=== PATIENT | female | born 1945 | race Caucasian/White ===

== ENCOUNTER 2017-09-19 16:34 | Emergency (ER) | payer MEDICARE, OTHER, SELFPAY | END 2017-09-19 18:57 | disposition home or self-care (01) | PROVIDERS: Emergency Provider Emergency Medicine; Visit Provider Emergency Medicine | DX: J05.0 Acute obstructive laryngitis [croup] (principal); B34.9 Viral infection, unspecified; I10 Essential (primary) hypertension; E78.5 Hyperlipidemia, unspecified; E11.9 Type 2 diabetes mellitus without complications | CPT/HCPCS: 71020; 94640 ==

== ENCOUNTER → 2021-08-22 16:22 | Outpatient (REF) | payer MEDICARE, OTHER, SELFPAY ==
[2021-08-22 17:02] LABS: Basophils % 0.4 % (0.1-2.0); Eosinophils # 0.3 K/mm3 (0.0-0.4); Eosinophils % 3.9 % (0.1-12.0); Hemoglobin 10.7 g/dL (12.2-16.2); Lymphocytes # 1.1 K/mm3 (0.7-4.5); Lymphocytes % 13.2 % (10-50); Mean Corpuscular HGB Conc 30.6 g/dL (31.8-35.4); Mean Corpuscular Hemoglobin 32.3 pg (27.0-31.2); Mean Corpuscular Volume 105.6 fl (81-99); Mean Platelet Volume 9.8 fl (7.4-10.4); Monocytes # 0.3 K/mm3 (0.1-1.0); Monocytes % 3.9 % (1.7-9.3); Neutrophils # 6.8 K/mm3 (1.8-7.8); Neutrophils % 78.6 % (37.0-80.0); Platelet Count 313 K/mm3 (142-424); Red Blood Count 3.32 M/mm3 (4.20-5.40); Red Cell Distribution Width 14.6 % (11.5-17.5); White Blood Count 8.6 K/mm3 (4.8-10.8)
[2021-08-22 17:26] LABS: Anion Gap 9.4 mEq/L (5-15); Blood Urea Nitrogen 25 mg/dl (7-17); Calcium 9.3 mg/dl (8.4-10.2); Carbon Dioxide 30 mmol/L (22.0-30.0); Chloride 104 mmol/L (98-107); Estimated Glomerular Filt Rate 36 ml/min (>60); GFR (African American) 44 ML/MIN (>60); Glucose 130 mg/dl (74-100); Potassium 4.4 mmoL/L (3.5-5.1); Sodium 139 mmol/L (136-145)
== END ==
LOC: LAB.DROPOF 16:22
PROVIDERS: Visit Provider Family Medicine
DX: I10 Essential (primary) hypertension (principal)
CPT/HCPCS: 80048; 85025

== ENCOUNTER 2021-08-22 20:46 | Inpatient (IN) | payer MEDICARE, OTHER, SELFPAY ==
[2021-08-22 20:38] VITALS: BP 168/73; PULSE 71; RESP 18; TEMP 36.6; O2SAT 96; BMI 44.6
--- NOTE | 2021-08-22 21:03 | CT_ITS ---
PROCEDURE INFORMATION: Exam: CT Head Without Contrast Exam date and time: 08/22/2021 9:03 PM Age: 75 years old Clinical indication: Altered mental status/memory loss; Confusion or disorientation; Additional info: AMS TECHNIQUE: Imaging protocol: Computed tomography of the head without contrast. Radiation optimization: All CT scans at this facility use at least one of these dose optimization techniques: automated exposure control; mA and/or kV adjustment per patient size (includes targeted exams where dose is matched to clinical indication); or iterative reconstruction. COMPARISON: No relevant prior studies available. FINDINGS: Brain: Mild age related central and peripheral cerebral atrophy noted. No hemorrhage. There is mild decreased attenuation within lateral periventricular white matter, compatible with chronic deep white matter ischemic change. No mass effect. Cerebral ventricles: Mild atrophy related global ventriculomegaly. No evidence of midline shift. Paranasal sinuses: Visualized sinuses are unremarkable. No fluid levels. Nasal septal deviation to the right is noted. Mastoid air cells: Visualized mastoid air cells are well aerated. Vasculature: Intraranial artery density is normal. Bones/joints: Unremarkable. No acute fracture. Soft tissues: Bilateral cataract surgery has been performed. Auricular cartilage calcification noted along the external canals. IMPRESSION: 1. No evidence of acute intracranial bleed or focal cerebral edema. 2. Mild age-related central and peripheral cerebral atrophy with chronic deep white matter ischemic changes noted.
--- NOTE | 2021-08-22 21:21 | CT_ITS ---
PROCEDURE INFORMATION: Exam: CT Abdomen And Pelvis With Contrast Exam date and time: 08/22/2021 9:21 PM Age: 75 years old Clinical indication: Abdominal pain; Generalized; Prior surgery; Surgery date: 1-6 months; Surgery type: Bowel perforation surgery; Additional info: Recent perforation TECHNIQUE: Imaging protocol: Computed tomography of the abdomen and pelvis with contrast. Radiation optimization: All CT scans at this facility use at least one of these dose optimization techniques: automated exposure control; mA and/or kV adjustment per patient size (includes targeted exams where dose is matched to clinical indication); or iterative reconstruction. Contrast material: ISOVUE; Contrast volume: 75 ml; Contrast route: IV; COMPARISON: No relevant prior studies available. FINDINGS: Lungs: No mass/infiltrate at either lung base. No pleural effusion. Transvenous pacing leads are identified within the right heart. There is a small hiatal hernia above the gastroesophageal junction. Surgical clips surround the distal esophagus and the small hiatal hernia. Liver: The liver is normal in size and attenuation. No intrahepatic biliary dilitation. Gallbladder and bile ducts: There is a 1.4 cm densely calcified gallstone present within the neck of the gallbladder. The gallbladder does not appear enlarged. There is no evidence of gallbladder wall thickening or pericholecystic effusion. No evidence of extrahepatic biliary dilatation. Pancreas: Normal. No ductal dilation. Spleen: Normal. No splenomegaly. Adrenal glands: Normal. No mass. Kidneys and ureters: Normal. No hydronephrosis. Stomach and bowel: Diverticulosis of portions of the colon identified. In the region of the proximal sigmoid colon there is thickening of the bowel wall. Infiltration of fat of the mesosigmoid is identified. No extraluminal collection of fluid or gas. Findings are compatible with focal diverticulitis in this location. No obstruction. No mucosal thickening. Small bowel mesentery is normal. Appendix: Unremarkable. Intraperitoneal space: Unremarkable. No free air. No significant fluid collection. Vasculature: Arterial atheromatous calcifications are noted. No abdominal aortic aneurysm. Lymph nodes: Unremarkable. No enlarged lymph nodes. Urinary bladder: There is a Robertson catheter identified within the bladder. Limited distention of the bladder. Reproductive: Unremarkable as visualized. Bones/joints: There are degenerative changes within the thoracic and lumbar spine. No acute fracture. Soft tissues: Unremarkable. IMPRESSION: 1. There is a focal area of inflammatory change noted within the proximal sigmoid colon. This is seen in conjunction with prominent diverticulosis within the descending colon and sigmoid colon. It is felt to represent a focus of diverticulitis. No evidence of extraluminal collection of fluid or gas to suggest an abscess. 2. Small hiatal hernia. There are surgical clips surrounding the distal esophagus and the small hiatal hernia. 3. Cholelithiasis. 4. A Robertson catheter is in place.
[2021-08-22 21:28] LABS: Microscopic, Urine URINE MICROSCOPIC (MICROSCOPIC)
--- NOTE | 2021-08-22 21:31 | HMH.EDAMS ---
ED Disposition Clinical Impression: SIRS (systemic inflammatory response syndrome), Renal insufficiency Altered mental status Qualifiers: Altered mental status type: delirium Qualified Code(s): R41.0 - Disorientation, unspecified Diverticulitis large intestine Qualifiers: Diverticulitis bleeding: without bleeding Diverticulitis complication: without perforation or abscess Qualified Code(s): K57.32 - Diverticulitis of large intestine without perforation or abscess without bleeding Cholelithiasis Qualifiers: Cholelithiasis location: gallbladder Cholecystitis presence: without cholecystitis Biliary obstruction: without biliary obstruction Qualified Code(s): K80.20 - Calculus of gallbladder without cholecystitis without obstruction Disposition: Admitted as Observation Condition on Discharge: Good - Critical Care Critical Care Time: No Attestation: On 08/22/21, the high probability of a clinically significant, sudden or life threatening deterioration of the following system(s) required my full and direct attention, intervention and personal management. The time I documented below is in addition to time spent performing reported procedures but includes the following listed in this critical care notation. Medical Decision Making - Medical Records Medical records reviewed: Yes: I reviewed the patient's medical records. - Segundo Inquiry Pt receiving controlled substance: No Vital Signs: 08/22/21 20:38 08/22/21 21:32 08/22/21 21:35 Temperature 97.8 F 98.8 F Temperature Source Oral Rectal Pulse Rate 94 H Pulse Rate [Right] 71 Respiratory Rate 18 Blood Pressure 175/92 H Blood Pressure [Right Arm] 168/73 H Blood Pressure Mean [Right Arm] 104 02 Sat by Pulse Oximetry 96 95 Oxygen Delivery Method 08/22/21 22:13 08/22/21 22:38 08/22/21 23:01 Temperature Temperature Source Pulse Rate 105 H 81 104 H Pulse Rate [Right] Respiratory Rate Blood Pressure 184/94 H 168/75 H 183/103 H Blood Pressure [Right Arm] Blood Pressure Mean [Right Arm] 02 Sat by Pulse Oximetry 95 96 94 L Oxygen Delivery Method 08/23/21 01:29 08/23/21 01:41 08/23/21 02:27 Temperature 98.8 F 97.7 F Temperature Source Rectal Oral Pulse Rate 111 H 118 H Pulse Rate [Right] 115 H Respiratory Rate 18 20 Blood Pressure 168/91 H 168/91 H Blood Pressure [Right Arm] 134/72 Blood Pressure Mean [Right Arm] 92 02 Sat by Pulse Oximetry 95 94 L Oxygen Delivery Method Room Air 08/23/21 02:43 Temperature Temperature Source Pulse Rate Pulse Rate [Right] Respiratory Rate Blood Pressure Blood Pressure [Right Arm] Blood Pressure Mean [Right Arm] 02 Sat by Pulse Oximetry Oxygen Delivery Method Room Air - Lab Data Lab results reviewed: Yes: I reviewed the patient's lab results. Lab Results 08/22/21 21:18: WBC 8.7, RBC 3.37 L, Hgb 10.9 L, Hct 35.5 L, MCV 105.3 H, MCH 32.4 H, MCHC 30.8 L, RDW 14.6, Plt Count 337, MPV 9.2, Neut % (Auto) 72.5, Lymph % (Auto) 16.1, [place] % (Auto) 6.0, Eos % (Auto) 4.5, Baso % (Auto) 0.9, Neut # (Auto) 6.3, Lymph # (Auto) 1.4, [place] # (Auto) 0.5, Eos # (Auto) 0.4, Baso # (Auto) 0.1, ESR 90 H 08/22/21 21:18: Sodium 139, Potassium 4.3, Chloride 105, Carbon Dioxide 31 H, Anion Gap 7.3, BUN 24 H, Creatinine 1.40 H, Estimated Creat Clear 29, Estimated GFR 36 L, Est GFR ( Amer) 44 L, Glucose 97 D, Calcium 9.6, Total Bilirubin 0.1 L, AST 57 H, ALT 48, Alkaline Phosphatase 137 H, C-Reactive Protein 20.8 H, Total Protein 6.7, Albumin 3.5, Globulin 3.2, Albumin/Globulin Ratio 1.1, Procalcitonin 0.110 08/22/21 21:18: Urine Color Yellow, Urine Appearance Clear, Urine pH 5.5, Ur Specific [place] 1.025, Urine Protein Negative, Urine Glucose (UA) Negative, Urine Ketones Negative, Urine Blood Negative, Urine Nitrate Negative, Urine Bilirubin Negative, Urine Urobilinogen 0.2, Ur Leukocyte Esterase Negative, Urine RBC None, Urine WBC Occasional, Ur Squamous Epith Cells None, Urine
[2021-08-22 21:32] VITALS: BP 175/92; PULSE 94; O2SAT 95
[2021-08-22 21:32] LABS: Basophils # 0.1 K/mm3 (0-0.2); Basophils % 0.9 % (0.1-2.0); Eosinophils # 0.4 K/mm3 (0.0-0.4); Eosinophils % 4.5 % (0.1-12.0); Hematocrit 35.5 % (37.0-47.0); Hemoglobin 10.9 g/dL (12.2-16.2); Lymphocytes # 1.4 K/mm3 (0.7-4.5); Lymphocytes % 16.1 % (10-50); Mean Corpuscular HGB Conc 30.8 g/dL (31.8-35.4); Mean Corpuscular Hemoglobin 32.4 pg (27.0-31.2); Mean Corpuscular Volume 105.3 fl (81-99); Mean Platelet Volume 9.2 fl (7.4-10.4); Monocytes # 0.5 K/mm3 (0.1-1.0); Neutrophils # 6.3 K/mm3 (1.8-7.8); Neutrophils % 72.5 % (37.0-80.0); Platelet Count 337 K/mm3 (142-424); Red Blood Count 3.37 M/mm3 (4.20-5.40); Red Cell Distribution Width 14.6 % (11.5-17.5); White Blood Count 8.7 K/mm3 (4.8-10.8)
[2021-08-22 21:34] LABS: Coronavirus 19, PCR Not Detected (NotDetected); Influenza A, PCR Not Detected (NotDetected); Influenza B, PCR Not Detected (NotDetected)
[2021-08-22 21:35] VITALS: TEMP 37.1
[2021-08-22 21:35] LABS: Appearance,Urine CLEAR (Clear); Bilirubin,Urine Negative (Negative); Blood, Urine Negative (Negative); Color,Urine YELLOW (Yellow); Glucose,Urine (UA) Negative (Negative); Ketones,Urine Negative (Negative); Leukocyte Esterase,Urine Negative (Negative); Nitrate,Urine Negative (Negative); PH,Urine 5.5 (5.0-8.5); Protein,Urine Negative (Negative); Specific Gravity, Urine 1.025 (1.005-1.030); Urobilinogen,Urine 0.2 EU/dl (0.2)
[2021-08-22 21:44] LABS: Alanine Aminotransferase 48 U/L (12-78); Albumin Level 3.5 g/dl (3.5-5.0); Albumin/Globulin Ratio 1.1 (1.1-1.8); Alkaline Phosphatase 137 U/L (38-126); Anion Gap 7.3 mEq/L (5-15); Aspartate Amino Transferase 57 U/L (14-36); Blood Urea Nitrogen 24 mg/dl (7-17); Calcium 9.6 mg/dl (8.4-10.2); Carbon Dioxide 31 mmol/L (22.0-30.0); Chloride 105 mmol/L (98-107); Creatinine Clearance Estimated 29 mL/min (50-200); Estimated Glomerular Filt Rate 36 ml/min (>60); GFR (African American) 44 ML/MIN (>60); Globulin 3.2 g/dL (1.3-3.2); Glucose 97 mg/dl (74-100); Lactic Acid 1.2 mmol/L (0.7-2.1); Potassium 4.3 mmoL/L (3.5-5.1); Sodium 139 mmol/L (136-145); Total Protein,Serum 6.7 g/dl (6.3-8.2)
[2021-08-22 21:47] LABS: Bilirubin,Total 0.1 mg/dl (0.2-1.3)
[2021-08-22 21:49] LABS: C-Reactive Protein 20.8 mg/L (0-4); WBC,Urine Occasional #/hpf (0-3)
[2021-08-22 22:07] LABS: Amylase 75 U/L (30-110); Lipase 135 U/L (23-300)
[2021-08-22 22:12] LABS: Erythrocyte Sedimentation Rate 90 mm/hr (0-30)
[2021-08-22 22:13] VITALS: BP 184/94; PULSE 105; O2SAT 95
[2021-08-22 22:25] LABS: Troponin I < 0.01 ng/ml (0.00-0.034)
[2021-08-22 22:38] VITALS: BP 168/75; PULSE 81; O2SAT 96
--- NOTE | 2021-08-22 22:55 | XR_ITS ---
PROCEDURE INFORMATION: Exam: XR Chest Exam date and time: 08/22/2021 10:55 PM Age: 75 years old Clinical indication: Sternal or substernal pain; Additional info: AMS TECHNIQUE: Imaging protocol: XR of the chest. Views: 1 view. COMPARISON: CR CXR CHEST(2 VIEWS-NOT PORTABLE) 09/19/2017 5:01 PM FINDINGS: Tubes, catheters and devices: There is a left dual lead transvenous pacer with distal leads in the right atrium and right ventricle. There is a right internal jugular catheter with its tip in the superior vena cava. Lungs: Unremarkable. No consolidation. Pleural spaces: Unremarkable. No pleural effusion. No pneumothorax. Heart/Mediastinum: Unremarkable. No cardiomegaly. Bones/joints: There is levoconvex lower thoracic scoliosis. IMPRESSION: 1. Right internal jugular catheter with its tip in the superior vena cava. No evidence of pneumothorax. 2. No evidence of acute process within the chest.
[2021-08-22 23:01] VITALS: BP 183/103; PULSE 104; O2SAT 94
[2021-08-23] VITALS (16 sets, daily range): BP systolic 134–168; BP diastolic 72–100; PULSE 76–123; RESP 16–23; TEMP 36.5–37.1; O2SAT 91–96; BMI 47.0
--- NOTE | 2021-08-23 00:44 | PC.NURSE ---
Pt requesting to leave and come back in AM. She is adamant to no stay through the night. Dr. Smith s/w pt & her . chimney supervisor brick called Dr. Hensley (on-call Gen Surgeron). He requests pt be kept NPO and arrive to [facility] @ 1228 08/23/21. OK to leave peripheral IV in place, this was dressed and wrapped. Pt educated.
--- NOTE | 2021-08-23 01:15 | PC.NURSE ---
DR. JONES ON PHONE WITH
--- NOTE | 2021-08-23 01:33 | PC.NURSE ---
PATIENT TO BE ADMITTED TO 205.
--- NOTE | 2021-08-23 01:40 | PC.NURSE ---
REPORT CALLED TO MIHIR
--- NOTE | 2021-08-23 02:03 | PC.NURSE ---
MARK signed DNR and set up password of Shayy Oquendo @ this time
--- NOTE | 2021-08-23 02:12 | PC.NURSE ---
PT ARRIVED TO FLOOR VIA STRETCHER FROM ED W/STAFF @ [id number]
--- NOTE | 2021-08-23 02:51 | PC.NURSE ---
notified MD Fiore that pt's head and neck are hurting, but pt has no pain medication ordered, instructed to order tylenol for pt, sent night watch the order
--- NOTE | 2021-08-23 03:30 | PC.NURSE ---
notified MD Fiore of pt's extreme agitation, combativeness toward staff, that pt uncooperative and attempting to get out of bed; instructed to give 1mg lorazepam IV
[2021-08-23 03:35] LABS: Troponin I 0.47 ng/ml (0.00-0.034)
--- NOTE | 2021-08-23 03:45 | PC.NURSE ---
notified MD Fiore of pt's critical troponin level of .47, stated protocols have changed in last week and to draw another troponin at 0600
[2021-08-23 06:58] LABS: Troponin I 0.96 ng/ml (0.00-0.034)
--- NOTE | 2021-08-23 07:04 | PC.NURSE ---
notified MD Fiore oncbharathi of pt's critical elevated troponin, MD Fiore stated MD Rodríguez would be rounding shortly and will assess pt when he arrives
--- NOTE | 2021-08-23 07:27 | ECG_ITS ---
APPROVED REPORT Exam: Resting ECG HR:107 bpm ECG Measurements Heart Rate 107 AXES QRSd 86 QRS -66 QT 350 T 32 QTc 467 Conclusion Atrial fibrillation with rapid ventricular response Left axis deviation LBBB Abnormal ECG Electronically signed by : Shady Palacios MD 08/23/2021 09:04:01
--- NOTE | 2021-08-23 08:45 | HMH.HP ---
*Admission Date: 08/22/21 *Chief complaint: Altered mental status *History of present illness: Ms. Jarrett is a 75-year-old white female with a history of chronic atrial fibrillation, hypertension, sleep apnea, seizure disorder, and chronic kidney disease. She was recently admitted to [place] for IV antibiotics following an acute admission at [facility] for ruptured diverticulum which was treated conservatively. She did not require surgery. Last evening, she had a change in her mental status at [facility] and was transferred to the emergency room for further evaluation. In the ER, she was confused and agitated however her work-up was fairly nonrevealing (please refer to ER record for details). She required 1 dose of Ativan overnight. At the time of my exam this morning, she is alert and calm. She was able to call me by name. She does not recall the events of last evening. She is able to give me a a general history but has difficulty recalling specific details. She has no complaints of chest pain, shortness of breath, nausea, or abdominal pain. Her troponins have elevated overnight. She remains in atrial fib with a rapid response but has not had her morning medication. According to her daughter, she has had 2 previous cardioversions which were successful but each time she has gone back into atrial fibrillation. She is scheduled to have another cardioversion on 09/16/[address] Mann[address] [facility] History Medical History: Reports:: Atrial Fibrillation (chronic; s/p 2 previous cardioversions), Hypertension, Internal Pacemaker, Renal Insufficiency, Seizures Denies:: Diabetes Mellitus Type 1, Diabetes Mellitus Type 2 *Have you ever received a pneumonia vaccine?: No *Have you received a flu vaccine this season?: No Other Medical History: Reports: Other (RIAZ, Diverticulosis with hx of ruptured diverticulum) Laterality Cases: Bilateral: Carpal Tunnel Release, Cataract, Tonsillectomy Other Surgeries: Yes: Colonoscopy, Pacemaker, Tubal Ligation, Other (Cardioversion x 2) - *Social History Smoking Status: Never smoker Alcohol Intake: never *Occupational Status:: retired Housing: halfway *Travel in the last 8 weeks: None Family Hx:: Coronary Artery Disease, Diabetes Review of Systems - Constitutional Denies chills, Denies fever(s) - Eyes Denies blurry vision, Denies double vision - ENT Reports hoarseness, Denies abnormal hearing, Denies dizziness, Denies nasal congestion - *Cardiovascular Reports irregular heart rhythm, Reports leg swelling, Denies chest pain, Denies shortness of breath - *Respiratory Reports shortness of breath, Denies chest congestion, Denies cough - *Gastrointestinal Denies abdominal pain, Denies change in stools, Denies bright, red blood in stools, Denies black, tarry stools - *Genitourinary Denies difficulty urinating, Denies hot flashes - *Musculoskeletal Denies joint pain, Denies muscle weakness - Integumentary/Breasts Denies hair loss, Denies change in skin color - *Neurologic Reports confusion, Reports weakness, Denies dizziness, Denies localized weakness, Denies headache(s), Denies seizure-like activity - Psychiatric Denies anxiety - Endocrine Denies excessive sweating - Hematologic/Lymphatic Denies easy bleeding - Allergic/Immunologic Denies itchy eyes Meds Home Medications Medication Instructions Recorded Confirmed Type Apixaban [Eliquis] 5 mg PO BID 08/22/21 08/23/21 History Chlorthalidone [Chlorthalidone 12.5 mg PO DAILY 08/22/21 08/23/21 History 25mg tablet] Flecainide Acetate [Tambocor 50mg 50 mg PO Q12 08/22/21 08/23/21 History tablet] Metoprolol Succinate [Toprol XL 25 mg PO DAILY 08/22/21 08/23/21 History 25mg tablet] Piperacillin Sodium/Tazobactam 3.375 gm IV Q8 08/22/21 08/23/21 History [Piperacil-Tazo 3.375 gm Add Vl] Rosuvastatin Calcium 5 mg PO DAILY 08/22/21 08/23/21 History allopurinoL [Allopurinol 100mg 200 mg PO DAILY 08/22/21
--- NOTE | 2021-08-23 08:59 | PC.NURSE ---
Dr. Amos notified about consult.
--- NOTE | 2021-08-23 09:29 | PC.NURSE ---
per family: Pt has R IJ TLDL as she is receiving IV abx at [place]. Inserted at [place] 1 wk ago.
--- NOTE | 2021-08-23 09:39 | PC.NURSE ---
Pt transferred to room 216 step down. This RN not assuming care of pt.
--- NOTE | 2021-08-23 09:44 | HMH.PHAINT ---
Confirmed home medications with [facility] and [facility] [place]
--- NOTE | 2021-08-23 09:54 | PC.NURSE ---
Pt has R SC double lumen deep line as she is receiving IV abx at [place]. Inserted at [place] 1 wk ago.
--- NOTE | 2021-08-23 10:29 | PC.NURSE ---
pt refused the hospital gown. She is also saying that staff is not taking her to the restroom when we are.
[2021-08-23 11:33] LABS: POC Glucose,Bedside 107 (70-110)
--- NOTE | 2021-08-23 12:57 | HMH.PHAVTE ---
[facility] Pharmacy VTE Monitoring - Patient Demographics Allergies/Adverse Reactions: Patient Allergies adhesive Allergy (Verified 08/22/21 21:02) adhesive tape Allergy (Verified 08/22/21 21:02) Height: 1.65 m Weight: 128 kg Patient Problems: Current Active Problems Altered mental status (Acute) Diverticulitis large intestine (Acute) Cholelithiasis (Acute) SIRS (systemic inflammatory response syndrome) (Acute) Renal insufficiency (Acute) Chronic atrial fibrillation (Acute) HBP (high blood pressure) (Acute) Hx of seizure disorder (Acute) RIAZ (obstructive sleep apnea) (Acute) Elevated troponin (Acute) - VTE Risk Labs: VTE Related Lab Results Hgb 10.9 g/dL (12.2-16.2) L 08/22/21 21:18 Hct 35.5 % (37.0-47.0) L 08/22/21 21:18 Plt Count 337 K/mm3 (142-424) 08/22/21 21:18 BUN 24 mg/dl (7-17) H 08/22/21 21:18 Creatinine 1.40 mg/dl (0.52-1.04) H 08/22/21 21:18 Estimated Creat Clear 29 mL/min (50-200) 08/22/21 21:18 Was VTE Risk Assessment Performed: No Clinical Trial Participant: No - Prophylaxis VTE Prophylaxis Ordered?: Yes Types of VTE Prophylaxis: TEDS Knee High Location of Applied Device: Bilateral Lower Extremeties
--- NOTE | 2021-08-23 13:15 | PC.NURSE ---
Diltiazem gtt increased to 15mg/hr as Afib uncontrolled continues with rate 115-125.
[2021-08-23 16:43] LABS: POC Glucose,Bedside 107 (70-110)
[2021-08-24] VITALS (15 sets, daily range): BP systolic 88–134; BP diastolic 44–74; PULSE 60–101; RESP 16–26; TEMP 36.8–37.1; O2SAT 90–96; BMI 47.0
--- NOTE | 2021-08-24 07:27 | PC.NURSE ---
EKG reveals sinus tach with rate 144. Pt also having multiple PVCs. Dr. Amos to round this morning.
--- NOTE | 2021-08-24 08:48 | HMH.ACPN2 ---
Internal Medicine - PN: Subj *Date: 08/24/21 *Time: 08:55 Interval history: She was started on a Cardizem drip yesterday per Dr. Amos to control her rate. She remains in A. fib with controlled rate this morning. Otherwise no new complaints. She rested better last night. Did not require Ativan. This morning her mental status is more clear. She is able to relate her medical history more clearly today. Exam Vital signs and Labs for Last 24 Hours: Temp Pulse Resp BP Pulse Ox 98.7 F 77 18 114/65 90 L 08/24/21 08:00 08/24/21 08:00 08/24/21 08:00 08/24/21 08:00 08/24/21 08:00 Laboratory Results - last 24 hr 08/23/21 11:15: POC Glucose 107 08/23/21 16:36: POC Glucose 107 I & O for Last 24 hours: Intake & Output 08/21/21 08/22/21 08/23/21 08/24/21 11:59 11:59 11:59 11:59 Intake Total 380 / 380 Output Total 1350 / 1350 Balance -970 / -970 Weight 282 lb 3.067 oz 282 lb 3.067 oz Narrative: She is awakened from sleep and arouses easily. She appears in no distress. Lungs are clear anteriorly. Heart is irregularly irregular. Abdomen is obese, soft, nondistended and nontender. Extremities no edema. Assessment and Plan (1) Altered mental status Status: Acute Qualifiers: Altered mental status type: delirium Qualified Code(s): R41.0 - Disorientation, unspecified Category: Medical Code(s): R41.82 - Altered mental status, unspecified (2) Diverticulitis large intestine Status: Acute Qualifiers: Diverticulitis bleeding: without bleeding Diverticulitis complication: without perforation or abscess Qualified Code(s): K57.32 - Diverticulitis of large intestine without perforation or abscess without bleeding Category: Medical Code(s): K57.32 - Diverticulitis of large intestine without perforation or abscess without bleeding (3) Chronic atrial fibrillation Status: Acute Category: Medical Code(s): I48.20 - Chronic atrial fibrillation, unspecified (4) HBP (high blood pressure) Status: Acute Category: Medical Code(s): I10 - Essential (primary) hypertension (5) Hx of seizure disorder Status: Acute Category: Medical Code(s): Z86.69 - Personal history of other diseases of the nervous system and sense organs (6) RIAZ (obstructive sleep apnea) Status: Acute Category: Medical Code(s): G47.33 - Obstructive sleep apnea (adult) (pediatric) (7) Elevated troponin Status: Acute Category: Medical Code(s): R77.8 - Other specified abnormalities of plasma proteins - Assessment and plan all Dx Assessment and Plan for all problems:: Continue Cardizem drip pending further recommendations per cardiology. Up in chair as tolerated. Mental status seems to be improving. Consider MRI brain if mental status does not return to baseline.
--- NOTE | 2021-08-24 08:57 | PC.NURSE ---
O2 sat hovering 85-88% for last 1hr. Pulse ox sticker changed and good pleth noted on tele monitor. Applied 2L NC and O2 sat now 93%.
--- NOTE | 2021-08-24 14:02 | ECG_ITS ---
APPROVED REPORT Exam: Resting ECG HR:70 bpm ECG Measurements Heart Rate 70 AXES QRSd 76 QRS -59 QT 502 T 154 QTc 542 Conclusion Atrial fibrillation Left axis deviation Low voltage QRS Prolonged QT Abnormal ECG Electronically signed by : Shady Palacios MD 08/25/2021 21:07:23
--- NOTE | 2021-08-24 19:00 | PC.NURSE ---
pt's HR 95, went to 12mg/hr on dilt drip
--- NOTE | 2021-08-24 20:00 | PC.NURSE ---
pt's HR 85, went to 10mg/hr on dilt drip
--- NOTE | 2021-08-24 21:00 | PC.NURSE ---
pt's HR 73, went to 8mg/hr on dilt drip
--- NOTE | 2021-08-24 22:02 | PC.NURSE ---
pt's HR 72, went to 6mg/hr on dilt drip
--- NOTE | 2021-08-24 22:49 | PC.NURSE ---
pt's HR 74, decreased dilt drip to 4mg/hr
[2021-08-25] VITALS (25 sets, daily range): BP systolic 97–125; BP diastolic 48–67; PULSE 66–89; RESP 16–24; TEMP 36.6–36.8; O2SAT 91–98; BMI 48.1
--- NOTE | 2021-08-25 | IR_ITS ---
APPROVED REPORT Patient Location: Inpatient [facility] Apprentice: DEVAN Pisano RT (R) PROCEDURES Left heart catheterization Left ventriculogram Selective coronary angiogram INDICATION Acute non-ST elevation myocardial infarction Informed consent was obtained prior to the procedure. COMPLICATIONS NONE Estimated Blood Loss: LESS THAN 10 ML TECHNIQUE One percent lidocaine used to anesthetize the right anterior aspect of the wrist. The right radial artery was accessed via the Seldinger technique. A 6 [place] sheath was placed in the right radial artery. 2.5 mg of verapamil, 800 mcg of nitroglycerin, 1mg Lidocaine and 5000 U Heparin were given through the arterial sheath. The [place] 1 catheter was also used to perform left heart catheterization, left ventriculogram and selective coronary angiogram. At the end of the procedure the sheath was removed good hemostasis was achieved using Traclet band, patient was transferred to the postop holding area in stable condition. ANGIOGRAPHIC RESULTS The left main artery Normal The left anterior descending artery Normal The circumflex artery Codominant normal The right coronary artery Codominant normal The CADENA ventriculogram reveals Dilated ventricle with apical ballooning with reduced ejection fraction at 25% The left ventricular end-diastolic pressure Severely elevated at 30 mmHg IMPRESSION Normal coronary arteries Apical ballooning consistent with Takotsubo cardiomyopathy Elevated LVEDP PLAN 1. Standard therapy for systolic heart failure 2. Discontinuation of flecainide. Patient has a history of chronic atrial fibrillation therefore makes no sense to continue flecainide. 3. Additional research is required. Apparently patient had her pacemaker placed just 2 months ago for bradycardia and it would be nice to get a copy of the echo report or possibly even the echo images to verify the ejection fraction was considerably better than what we are seeing. It appears as though patient has apical ballooning and possible Takotsubo cardiomyopathy although this may be a chronic finding. If this were chronic finding, I would recommend cardiac resynchronization therapy given she is RV pacing 40% of the time and would also consider TRANSLATOR AND INTERPRETER-D in order to reduce the likelihood of dying from sudden cardiac from ventricular arrhythmia 4. Continue anticoagulation Electronically signed by : Rafa Amos MD 08/25/2021 15:52:18
--- NOTE | 2021-08-25 | PC.NURSE ---
pt's HR still 60-70's however was NSR and regular, but now pt having frequent irregular beats, increased dilt drip to 5mg/hr
[2021-08-25 05:48] LABS: Basophils % 0.2 % (0.1-2.0); Eosinophils # 0.3 K/mm3 (0.0-0.4); Eosinophils % 2.6 % (0.1-12.0); Hemoglobin 9.6 g/dL (12.2-16.2); Lymphocytes # 1.3 K/mm3 (0.7-4.5); Lymphocytes % 10.7 % (10-50); Mean Corpuscular HGB Conc 32.8 g/dL (31.8-35.4); Mean Corpuscular Hemoglobin 33.2 pg (27.0-31.2); Mean Corpuscular Volume 101.2 fl (81-99); Mean Platelet Volume 9.5 fl (7.4-10.4); Monocytes # 0.5 K/mm3 (0.1-1.0); Monocytes % 4.4 % (1.7-9.3); Neutrophils # 10.1 K/mm3 (1.8-7.8); Neutrophils % 82.1 % (37.0-80.0); Platelet Count 286 K/mm3 (142-424); White Blood Count 12.3 K/mm3 (4.8-10.8)
[2021-08-25 05:49] LABS: Hematocrit 29.4 % (37.0-47.0)
[2021-08-25 05:57] LABS: Anion Gap 7.8 mEq/L (5-15); Blood Urea Nitrogen 32 mg/dl (7-17); Calcium 8.8 mg/dl (8.4-10.2); Carbon Dioxide 29 mmol/L (22.0-30.0); Chloride 104 mmol/L (98-107); Creatinine Clearance Estimated 18 mL/min (50-200); Estimated Glomerular Filt Rate 22 ml/min (>60); GFR (African American) 26 ML/MIN (>60); Glucose 108 mg/dl (74-100); Potassium 3.8 mmoL/L (3.5-5.1); Sodium 137 mmol/L (136-145)
--- NOTE | 2021-08-25 08:46 | HMH.ACPN2 ---
<Carol Moreira - Last Filed: 08/25/21 08:46> Internal Medicine - PN: Subj *Date: 08/25/21 *Time: 08:46 Interval history: Patient was able to sleep last night. She denies chest pain and shortness of breath. She states she eats without problems. She has not been out of bed. She remains on a Cardizem drip. Cardiology to see her this morning. She does describe some nasal stuffiness with a slight cough which started this morning upon awakening Exam Vital signs and Labs for Last 24 Hours: Temp Pulse Resp BP Pulse Ox 97.8 F 73 19 107/53 L 95 08/25/21 07:50 08/25/21 06:00 08/25/21 06:00 08/25/21 04:05 08/25/21 08:00 Laboratory Results - last 24 hr 08/25/21 05:40: WBC 12.3 H D, RBC 2.90 L, Hgb 9.6 L, Hct 29.4 L, MCV 101.2 H, MCH 33.2 H, MCHC 32.8, RDW 15.0, Plt Count 286, MPV 9.5, Neut % (Auto) 82.1 H, Lymph % (Auto) 10.7, [place] % (Auto) 4.4, Eos % (Auto) 2.6, Baso % (Auto) 0.2, Neut # (Auto) 10.1 H, Lymph # (Auto) 1.3, [place] # (Auto) 0.5, Eos # (Auto) 0.3, Baso # (Auto) 0.0 08/25/21 05:40: Sodium 137, Potassium 3.8, Chloride 104, Carbon Dioxide 29, Anion Gap 7.8, BUN 32 H D, Creatinine 2.20 H D, Estimated Creat Clear 18, Estimated GFR 22 L, Est GFR ( Amer) 26 L D, Glucose 108 H, Calcium 8.8 I & O for Last 24 hours: Intake & Output 08/22/21 08/23/21 08/24/21 08/25/21 11:59 11:59 11:59 11:59 Intake Total 1400 / 1400 1160 / 1160 Output Total 1350 / 1350 550 / 550 Balance 50 / 50 610 / 610 Weight 282 lb 3.067 oz 282 lb 3.067 oz 289 lb Microbiology Reports for the Last 24 Hours: Microbiology 08/22/21 21:18 Blood Blood Culture - Preliminary NO GROWTH AFTER 48 HOURS 08/22/21 21:18 Blood Blood Culture - Preliminary NO GROWTH AFTER 48 HOURS - Constitutional no acute distress Comments: Starting to eat breakfast - *Routine Respiratory Exam Present: crackles (Bilateral basilar) - *Routine Cardiovascular Exam Present: irregularly irregular Comments: Monitor showing a garden variety of rhythms to include paced, sinus rhythm with frequent PACs, and possibly some atrial fibrillation. - *Routine Abdominal Exam Present: soft, normoactive bowel sounds. Absent: tenderness, distended - *Routine Extremities Exam Absent: edema, calf tenderness - *Routine Neurological Exam Present: alert, oriented X3 Assessment and Plan (1) Altered mental status Status: Acute Qualifiers: Altered mental status type: delirium Qualified Code(s): R41.0 - Disorientation, unspecified Category: Medical Code(s): R41.82 - Altered mental status, unspecified (2) Diverticulitis large intestine Status: Acute Qualifiers: Diverticulitis bleeding: without bleeding Diverticulitis complication: without perforation or abscess Qualified Code(s): K57.32 - Diverticulitis of large intestine without perforation or abscess without bleeding Category: Medical Code(s): K57.32 - Diverticulitis of large intestine without perforation or abscess without bleeding (3) Chronic atrial fibrillation Status: Acute Category: Medical Code(s): I48.20 - Chronic atrial fibrillation, unspecified (4) HBP (high blood pressure) Status: Acute Category: Medical Code(s): I10 - Essential (primary) hypertension (5) Hx of seizure disorder Status: Acute Category: Medical Code(s): Z86.69 - Personal history of other diseases of the nervous system and sense organs (6) RIAZ (obstructive sleep apnea) Status: Acute Category: Medical Code(s): G47.33 - Obstructive sleep apnea (adult) (pediatric) (7) Elevated troponin Status: Acute Category: Medical Code(s): R77.8 - Other specified abnormalities of plasma proteins - Assessment and plan all Dx Assessment and Plan for all problems:: Cardiology to see patient today and will follow their recommendations. <Tanner Rodríguez - Last Filed: 08/25/21 14:03> Internal Med
--- NOTE | 2021-08-25 08:55 | HMH.CNCARD ---
History of Present Illness Consult date: 08/25/21 Requesting physician: Tanner Rodríguez Chief complaint: Confusion, elevated troponins Additional Medical History:: 1. Diabetes mellitus, diagnosed 2004, currently not on medical therapy 2. History of seizure disorder, August/2004, no recurrent seizures since then 3. Atrial fibrillation A. History of successful cardioversion x 2 ([place] and [place]). B. [employer] pacemaker inserted for bradycardia, June 2021, Dr. Mann in [place], [place] C. Patient is on flecainide therapy as well as Eliquis with CHADS-VASC score of 5 (age, female, HTN, DM) with annual thrombosis risk of 7.2%. 4. Chronic white matter disease of the brain by CT scan of the head, 08/2021 A. Altered mental status, 08/2021 5. Chronic kidney disease, patient has been seeing a hearing aid consultant for many years 6. Sleep apnea 7. Resident of [place] 8. Colonic diverticulum perforation, treated conservatively, [facility], latter half of 2020 9. Meralgia paresthesia (Ella-Andrews Syndrome). History of present illness: Ms. Jarrett is a 75-year-old white female with a history of chronic atrial fibrillation, hypertension, sleep apnea, seizure disorder, and chronic kidney disease. She was recently admitted to [place] for IV antibiotics following an acute admission at [facility] for ruptured diverticulum which was treated conservatively. She did not require surgery. Last evening, she had a change in her mental status at [place] and was transferred to the emergency room for further evaluation. In the ER, she was confused and agitated however her work-up was fairly nonrevealing (please refer to ER record for details). She required 1 dose of Ativan overnight. At the time of my exam this morning, she is alert and calm. She was able to call me by name. She does not recall the events of last evening. She is able to give me a a general history but has difficulty recalling specific details. She has no complaints of chest pain, shortness of breath, nausea, or abdominal pain. Her troponins have elevated overnight. She remains in atrial fib with a rapid response but has not had her morning medication. According to her daughter, she has had 2 previous cardioversions which were successful but each time she has gone back into atrial fibrillation. She is scheduled to have another cardioversion on 09/16/[address] Mann. The above per Dr. Rodríguez Admission details as noted above Cardiology consulted for elevated troponin and history of atrial fibrillation prior. Patient relates a stress test many years ago by Dr. Huitron but with no need for subsequent evaluation or testing. She was referred to Dr. Mann for management of her atrial fibrillation. She recently had a pacemaker placed in June of this year for bradycardia. [facility] History Medical History: Reports:: Atrial Fibrillation (chronic; s/p 2 previous cardioversions), Hypertension, Internal Pacemaker, Renal Insufficiency, Seizures Denies:: Diabetes Mellitus Type 1, Diabetes Mellitus Type 2 *Have you ever received a pneumonia vaccine?: No *Have you received a flu vaccine this season?: No Other Medical History: Reports: Other (RIAZ, Diverticulosis with hx of ruptured diverticulum) Laterality Cases: Bilateral: Carpal Tunnel Release, Cataract, Tonsillectomy Other Surgeries: Yes: Colonoscopy, Pacemaker, Tubal Ligation, Other (Cardioversion x 2) - *Social History Smoking Status: Never smoker Alcohol Intake: never *Occupational Status:: retired Housing: long term *Travel in the last 8 weeks: None Family Hx:: Coronary Artery Disease, Diabetes Meds Home Medications Medication Instructions Recorded Confirmed Type Apixaban [Eliquis] 5 mg PO BID 08/22/21 08/23/21 History Chlorthalidone [Chlorthalidone 12.5 mg PO DAILY 08/22/21 08/23/21 History 25mg tablet] Flecainide Acetate [Tambocor 50mg 50 mg PO Q12 08/22/21 08/23/21 History
--- NOTE | 2021-08-25 09:10 | CA_ITS ---
APPROVED REPORT EXAM: Comprehensive 2D, Doppler, and color-flow Echocardiogram Train Operations Manager: Zahraa Dyson CRT Ht: 5 ft 4 in Wt: 282lbs BSA: 2.26 BP: 134/72 mmHg Indications: Atrial Fibrillation, Hypertension/HDD, DNR, PACER, CARDIOVERSION X2. INCREASED OF TROP 2D Dimensions LVOT 1.98 cm (M/F) 1.5-2.5 LA Volume 57.50 mL LA Volume Index 25.40 mL/m2 (M/F) 16-34 M-Mode Dimensions RVDd 2.81 cm (0.9-2.6) LA Diam 4.25 cm (1.9-4.0) LVDd 5.69 cm (3.5-5.7) Ao Diam 3.95 cm (2.0-3.7) LVDs 3.72 cm (3.5-5.7) IVSd 1.22 cm (0.6-1.1) PWd 0.89 cm (0.6-1.1) EF (Teich) 63.00% FS 34.60% EDV (Teich) 159.40 mL TAPSE 2.47 (<1.7) ESV (Teich) 58.90 mL LV Diastology E Decel Time 203.00 (160-240 msec) E/A Ratio 2.84 MED E' 11.00 (< 7 cm/sec) MED A' 6.20 cm/s E'/MED E' Ratio 9.93 (>14) LAT E' 9.00 (<10 cm/sec) LAT A' 3.30 cm/s E/LAT E' Ratio 12.13 (>14) Aortic Valve AO Peak GR. 7.70 mmHg Mitral Valve MV E Max Enrrique. 109.00 (40-130 cm/s) MV A Velocity 38.00 (40-130 cm/s) E/A Ratio 2.84 MV Decel. Time 203.00 (160-240 ms) MV PHT 60.00 ms Tricuspid Valve TR P. Velocity 254.00 cm/s RAP Estimate 10.00 mmHg RVSP 35.70 mmHg Left Ventricle Technically very difficult study because of the patient factors and poor acoustic windows, endocardial surfaces are very poorly visualized. Left atrium is mildly enlarged, left ventricle is normal size, mild concentric left ventricular hypertrophy, there is abnormal septal motion, estimation of the ejection fraction from this study is very difficult, with slightly reduced and in the range of approximately 30%, there is abnormal septal motion, repeat study with Definity contrast is recommended for accurate assessment of wall motion and ejection fraction. Diastolic parameters are inconclusive. Right Ventricle Right atrium and right ventricle mildly enlarged with normal contractility, pacemaker lead seen in right atrium and right ventricle. Aortic Valve Aortic valve is minimally thickened and calcified without aortic stenosis or aortic insufficiency. Mitral Valve Mitral valve leaflets are minimally thickened, there is no mitral stenosis, there is mild mitral regurgitation. Tricuspid Valve Tricuspid valve grossly normal, there is mild tricuspid regurgitation, tricuspid regurgitation jet velocity is inadequate for calculation of the right ventricular systolic pressure. Pulmonic Valve Pulmonic valve is poorly visualized. Great Vessels Aortic root is normal size. Inferior vena cava normal size with normal inspiratory collapse. Pericardium No significant pericardial effusion noted. Conclusion 1. Technically difficult study because of the patient factors and poor acoustic windows, endocardial surfaces are very poorly visualized for accurate assessment of the ejection fraction, repeat study with Definity contrast is recommended. Likely reduced left ventricular systolic function, estimated ejection fraction is approximately 30%, there appears to be abnormal septal motion. Diastolic parameters are inconclusive. 2. Mildly enlarged right ventricle with normal contractility. 3. Mild mitral and tricuspid regurgitation. 4. No significant pericardial effusion noted. 5. Inferior vena cava is normal size with normal inspiratory collapse. Electronically signed by : Guanakito Schwartz MD 08/25/2021 21:21:21
--- NOTE | 2021-08-25 09:14 | SW/DCPLANNER ---
Addendum entered by [facility] 09/01/21 15:21: This patient will transfer back via [facility] bus per Franchesca. Addendum entered by [facility] 09/01/21 11:50: This patient is medically stable for discharge today: I have informed Franchesca [place]/ [facility]. Addendum entered by [facility] 09/01/21 10:13: COVID is negative and has been faxed to [facility] [place]/ Karthik Lal. Addendum entered by [facility] 09/01/21 09:44: Updated patient information has been faxed to [facility] [place]/ Karthik Lal. Patient could potentially discharge later today. COVID swab has been ordered. Addendum entered by [facility] 08/28/21 09:20: Updated patient information has been faxed to Franchesca with [facility]. Original Note: This patient currently resides at [facility]. I spoke with Franchesca from [facility] to confirm that patient is SNF level of care. Franchesca has stated that patient is currently paying bedhold. Patient information has been faxed. Discharge date is unknown at this time.
--- NOTE | 2021-08-25 18:25 | PC.NURSE ---
Patient is s/p cardiac cath this shift with radial band in place no bleeding or hematoma noted, resting comfortably in bed at this time, weaned to RA this shift and tolerating well, wishes for ramey catheter to be removed, states we can remove ramey when she can get out of bed this evening, pt has been pleasant and cooperative with care this shift, vss, will continue to monitor
[2021-08-26] VITALS (12 sets, daily range): BP systolic 98–131; BP diastolic 49–66; PULSE 60–117; RESP 16–23; TEMP 36.4–36.8; O2SAT 91–99
--- NOTE | 2021-08-26 04:29 | PC.NURSE ---
F/C DC'd overnight. Pt has been up to BSC with stand by assist. Tolerated well. VSS at this time. Pt is currently on 2L O2 NC while sleeping due to desat during sleep. Pt states she uses Cpap at home. Pt noted to have nonproductive cough. Incentive spirometry given. Pt educated. Pt is afib on telemetry with pacer spikes noted at times. DSG to (R) radial cath site is C/D/I. No drainage noted. Pt has scattered bruising to BUE. Erythema noted to (R) chest around DSG to central line.
[2021-08-26 06:42] LABS: Basophils % 0.2 % (0.1-2.0); Eosinophils # 0.3 K/mm3 (0.0-0.4); Eosinophils % 3.6 % (0.1-12.0); Hematocrit 30.5 % (37.0-47.0); Hemoglobin 9.6 g/dL (12.2-16.2); Lymphocytes # 1.3 K/mm3 (0.7-4.5); Lymphocytes % 14.1 % (10-50); Mean Corpuscular HGB Conc 31.5 g/dL (31.8-35.4); Mean Corpuscular Hemoglobin 32.8 pg (27.0-31.2); Mean Corpuscular Volume 104.2 fl (81-99); Mean Platelet Volume 9.7 fl (7.4-10.4); Monocytes # 0.4 K/mm3 (0.1-1.0); Monocytes % 4.2 % (1.7-9.3); Neutrophils # 7.3 K/mm3 (1.8-7.8); Neutrophils % 77.9 % (37.0-80.0); Platelet Count 310 K/mm3 (142-424); Red Blood Count 2.93 M/mm3 (4.20-5.40); Red Cell Distribution Width 14.7 % (11.5-17.5); White Blood Count 9.4 K/mm3 (4.8-10.8)
[2021-08-26 07:07] LABS: Blood Urea Nitrogen 39 mg/dl (7-17); Calcium 8.3 mg/dl (8.4-10.2); Carbon Dioxide 30 mmol/L (22.0-30.0); Chloride 104 mmol/L (98-107); Creatinine Clearance Estimated 18 mL/min (50-200); Estimated Glomerular Filt Rate 21 ml/min (>60); GFR (African American) 25 ML/MIN (>60); Glucose 99 mg/dl (74-100); Sodium 135 mmol/L (136-145)
--- NOTE | 2021-08-26 08:56 | HMH.ACPN2 ---
<Carol Moreira - Last Filed: 08/26/21 08:56> Internal Medicine - PN: Subj *Date: 08/26/21 *Time: 08:56 Interval history: Patient had a busy day yesterday with procedure and physician visits. He states she did sleep several hours during the night. She denies chest pain. She describes herself as being cold. She is short of breath with any exertion. She has developed a cough which is sometimes productive. She i describes chest congestion as well as head congestion. She is eating without difficulty. Bowels have moved. CBC this morning shows a white blood cell count of 9400 with a hemoglobin of 9.6 hematocrit of 30.5. Blood chemistries show sodium 135 potassium 4 BUN is 39 and creatinine is 2.3. Cardiac cath with the following documentation: IMPRESSION Normal coronary arteries Apical ballooning consistent with Takotsubo cardiomyopathy Elevated LVEDP PLAN 1. Standard therapy for systolic heart failure 2. Discontinuation of flecainide. Patient has a history of chronic atrial fibrillation therefore makes no sense to continue flecainide. 3. Additional research is required. Apparently patient had her pacemaker placed just 2 months ago for bradycardia and it would be nice to get a copy of the echo report or possibly even the echo images to verify the ejection fraction was considerably better than what we are seeing. It appears as though patient has apical ballooning and possible Takotsubo cardiomyopathy although this may be a chronic finding. If this were chronic finding, I would recommend cardiac resynchronization therapy given she is RV pacing 40% of the time and would also consider METAL MOVER-D in order to reduce the likelihood of dying from sudden cardiac from ventricular arrhythmia 4. Continue anticoagulation Cardiology documentation as followsADDENDUM LHC revealed normal coronaries. Apical ballooning noted on cath with official echo results pending, but concerned for Takotsubo Cardiomyopathy. Will try to obtain most recent echo near time of pacer implant to compare. Maximize medical therapy. Consider upgrading device to Bi-V AICD if this cardiomyopathy is pacer induced. Will stop flecainide and diltiazem due to near 100% A. fib over the last week on pacer download in setting of cardiomyopathy. Will increase metoprolol. Exam Vital signs and Labs for Last 24 Hours: Temp Pulse Resp BP Pulse Ox 97.7 F 97 H 20 113/55 L 98 08/26/21 08:00 08/26/21 06:00 08/26/21 06:00 08/26/21 06:00 08/26/21 06:00 Laboratory Results - last 24 hr 08/26/21 05:37: WBC 9.4, RBC 2.93 L, Hgb 9.6 L, Hct 30.5 L, MCV 104.2 H, MCH 32.8 H, MCHC 31.5 L, RDW 14.7, Plt Count 310, MPV 9.7, Neut % (Auto) 77.9, Lymph % (Auto) 14.1, [place] % (Auto) 4.2, Eos % (Auto) 3.6, Baso % (Auto) 0.2, Neut # (Auto) 7.3, Lymph # (Auto) 1.3, [place] # (Auto) 0.4, Eos # (Auto) 0.3, Baso # (Auto) 0.0 08/26/21 05:37: Sodium 135 L, Potassium 4.0, Chloride 104, Carbon Dioxide 30, Anion Gap 5.0, BUN 39 H, Creatinine 2.30 H, Estimated Creat Clear 18, Estimated GFR 21 L, Est GFR ( Amer) 25 L, Glucose 99, Calcium 8.3 L I & O for Last 24 hours: Intake & Output 08/23/21 08/24/21 08/25/21 08/26/21 11:59 11:59 11:59 11:59 Intake Total 1400 / 1400 1160 / 1160 360 / 360 Output Total 1350 / 1350 550 / 550 800 / 800 Balance 50 / 50 610 / 610 -440 / -440 Weight 282 lb 3.067 oz 282 lb 3.067 oz 289 lb 288 lb 12.889 oz - Constitutional no acute distress Comments: Sitting up in bed eating her breakfast. She appears comfortable. - *Routine Respiratory Exam Present: crackles (Bilateral greater on the left posteriorly) - *Routine Cardiovascular Exam Present: irregular rhythm (Mostly paced rhythm today.) - *Routine Abdominal Exam Present: soft, normoactive bowel sounds. Absent: tenderness - *Routine Extremities Exam Present: pulses intact. Absent: edema, calf tenderness - *Routine Neurological Exam Present: alert, oriented X3 Assessme
--- NOTE | 2021-08-26 09:00 | XR_ITS ---
PROCEDURE: XR CHEST PORTABLE CLINICAL HISTORY: New cough and chest congestion COMPARISON: CR CXR CHEST(2 VIEWS-NOT PORTABLE) from 09/19/2017 CR XR CHEST PORTABLE from 08/22/2021 FINDINGS: Mild cardiomegaly without failure. Bipolar pacemaker is present from left subclavian approach. Right IJ dual lumen catheter present with the tip in the region the SVC. There is elevated right hemidiaphragm with trace right effusion. Multiple small linear opacities noted projecting over the right lower lung zone and may be related overlying artifact. No acute bony abnormalities. IMPRESSION: Suspect trace right effusion otherwise no change. Dictated by: Janak Carrington MD 08/26/2021 09:59 Janak Carrington MD in [place] 08/26/2021 09:59
--- NOTE | 2021-08-26 12:01 | HMH.PNCARD ---
Subjective Date: 08/26/21 Time: 12:01 Principal diagnosis: AMS, Cardiomyopathy Interval history: 75-year-old white female in bed in no acute distress. No shortness of breath noted. Mild congestion noted in the nasal area being addressed by PCP. Telemetry shows what appears to be continued atrial fibrillation with intermittent paced beats. Rate is improved control on increased metoprolol dosing. Cardiac cath report: ANGIOGRAPHIC RESULTS The left main artery Normal The left anterior descending artery Normal The circumflex artery Codominant normal The right coronary artery Codominant normal The CADENA ventriculogram reveals Dilated ventricle with apical ballooning with reduced ejection fraction at 25% The left ventricular end-diastolic pressure Severely elevated at 30 mmHg IMPRESSION Normal coronary arteries Apical ballooning consistent with Takotsubo cardiomyopathy Elevated LVEDP PLAN 1. Standard therapy for systolic heart failure 2. Discontinuation of flecainide. Patient has a history of chronic atrial fibrillation therefore makes no sense to continue flecainide. 3. Additional research is required. Apparently patient had her pacemaker placed just 2 months ago for bradycardia and it would be nice to get a copy of the echo report or possibly even the echo images to verify the ejection fraction was considerably better than what we are seeing. It appears as though patient has apical ballooning and possible Takotsubo cardiomyopathy although this may be a chronic finding. If this were chronic finding, I would recommend cardiac resynchronization therapy given she is RV pacing 40% of the time and would also consider FAMILY PRACTICE MD-D in order to reduce the likelihood of dying from sudden cardiac from ventricular arrhythmia 4. Continue anticoagulation Electronically signed by : Rafa Amos MD 08/25/2021 15:52:18 Exam Vital signs and Labs for Last 24 Hours: Temp Pulse Resp BP Pulse Ox 97.7 F 64 18 120/64 96 08/26/21 08:00 08/26/21 08:00 08/26/21 08:00 08/26/21 08:00 08/26/21 08:00 Laboratory Results - last 24 hr 08/26/21 05:37: WBC 9.4, RBC 2.93 L, Hgb 9.6 L, Hct 30.5 L, MCV 104.2 H, MCH 32.8 H, MCHC 31.5 L, RDW 14.7, Plt Count 310, MPV 9.7, Neut % (Auto) 77.9, Lymph % (Auto) 14.1, [place] % (Auto) 4.2, Eos % (Auto) 3.6, Baso % (Auto) 0.2, Neut # (Auto) 7.3, Lymph # (Auto) 1.3, [place] # (Auto) 0.4, Eos # (Auto) 0.3, Baso # (Auto) 0.0 08/26/21 05:37: Sodium 135 L, Potassium 4.0, Chloride 104, Carbon Dioxide 30, Anion Gap 5.0, BUN 39 H, Creatinine 2.30 H, Estimated Creat Clear 18, Estimated GFR 21 L, Est GFR ( Amer) 25 L, Glucose 99, Calcium 8.3 L I & O for Last 24 hours: Intake & Output 08/24/21 08/25/21 08/26/21 08/27/21 11:59 11:59 11:59 11:59 Intake Total 1400 / 1400 1160 / 1160 360 / 360 Output Total 1350 / 1350 550 / 550 800 / 800 Balance 50 / 50 610 / 610 -440 / -440 Weight 282 lb 3.067 oz 289 lb 288 lb 12.889 oz - Constitutional no acute distress - *Routine HEENT Exam Head: Present: normocephalic Eye: Present: EOMI, PERRL ENT: Present: mucous membranes moist - *Routine Neck Exam Present: supple. Absent: lymphadenopathy - *Routine Respiratory Exam Present: CTA bilaterally - *Routine Cardiovascular Exam Present: RRR - *Routine Abdominal Exam Present: soft, normoactive bowel sounds. Absent: tenderness - *Routine Extremities Exam Absent: cyanosis, clubbing, edema - *Routine Skin Exam Present: warm. Absent: rash - *Routine Neurological Exam Present: alert, oriented X3 Progress Note: A&P (1) Altered mental status Status: Acute (2) Diverticulitis large intestine Status: Acute (3) Chronic atrial fibrillation Status: Acute (4) HBP (high blood pressure) Status: Acute (5) Hx of seizure disorder Status: Acute (6) RIAZ (obstructive sleep apnea) Status: Acute (7) Elevated troponin Status: Acute (8) URI (upper respiratory in
[2021-08-27] VITALS (26 sets, daily range): BP systolic 89–148; BP diastolic 45–80; PULSE 61–90; RESP 15–23; TEMP 36.5–37.1; O2SAT 89–100; BMI 48.1
--- NOTE | 2021-08-27 | IR_ITS ---
APPROVED REPORT Patient Location: [facility] Dispatcher: DEVAN Pisano RT (R) PROCEDURES 1. Pocket Revision 2. Extraction of existing right ventricular sensing lead. 3. Placement of right ventricular sensing pacing and shocking lead in the right ventricular apex. 4. Placement of left ventricular sensing pacing lead via the coronary sinus. 5. Permanent cardiac resynchronization therapy with ICD implantation/biventricular pacemaker. INDICATION Systolic Congestive Heart Failure, ejection <35%, Wide QRS >120ms, Harvey Heart Assoication Class 3 Congestive Heart Failure, Pacemaker cardiomyopathy Informed consent was obtained prior to the procedure. COMPLICATIONS NONE Estimated Blood Loss: LESS THAN 10 ML TECHNIQUE 1% Lidocaine with epinephrine used to anesthetized the left anterior aspect of the chest. Scalpel was used to make the initial cutaneous incision and to dissect down tinto the fascia. The existing generator was removed from pocket and set to the side, pocket revised for larger defibrillator. A stylette inserted in to existing right ventricular lead, RV lead sensing extracted. The patient was then placed in Trendelenburg position and the subclavian vein was accessed 3 times via the Selinger technique. A 8 Mongolian sheath was placed under fluoroscopic guidance into the subclavian vein. The dilator was removed from the sheath. Using fluoroscopic guidance, the ventricular lead was placed into the right ventricular apex, screwed and secured into place. Electronic interrogation proved acceptable thresholds and voltage within the lead. Using 3-0 silk, the ventricular lead was then secured into place and sheath peeled away. Following this, a 9.5 Mongolian sheath and dilator was then placed over one of the wires while keeping the other wire in place within the subclavian vein. The dilator was removed from the sheath. Using fluoroscopic guidance, contrast was used to visualize the coronary sinus, the left ventricular lead was placed into the coronary sinus. Electronic interrogation proved acceptable thresholds and voltage within the lead. Using 3-0 silk, the left ventricular lead was then secured into place and sheath peeled away. 1 gram of Ancef was used to flush the pocket. Existing right atrial lead and both ventricular leads were connected to generator and tested via computer. The defibrillator then secured to the fascia. Monocryl was used to close the subcutaneous layers while josh were used to close the cutaneous layer. A pressure dressing was placed and the patient was transferred to the postop holding area in stable condition for postoperative care. INTERROGATION Implanted Generator Model number: VIGILANT X4 VALET-D, G247 Implanted Generator Serial number: [id number] Atrial lead model number: Capsurefix Novus Bipolar, 5076 Atrial lead serial number: [id number] P-wave: 1.0 mV Impedence: Afib Threshold: 450 ohms Left Ventricular lead model number: ACUITY X4, 4671 Left Ventricular lead serial number: [id number] R-wave: 4.0 mV Impedence: 1.2V@1.0ms Threshold: 420 ohms Right Ventricular lead model number: RELIANCE 4-FRONT, 0675 Right Ventricular lead serial number: [id number] R-wave: 8 mV Impedence: 0.7V@0.4ms Threshold: 520 ohms Pacing Parameters: Mode: DDDR Base/Max Track: 75/130 BPM ICD Rate Cutoffs: VT: 170 bpm, 5 sec. ATP, 41J x 6 VF: 200 bpm, 2.5 sec. Quick Convert, 41J x 8 No diaphragmatic stimulation at 10 volts. IMPRESSION 1. Successful Pocket Revision 2. Successful extraction of existing right ventricular sensing lead. 3. Successful Placement of right ventricular sensing pacing and shocking lead in th
--- NOTE | 2021-08-27 06:31 | PC.NURSE ---
no acute events overnight. no c/o pain this shift. controlled Afib on tele. Pt wore 2L NC through the night, room air when awake. Standby assist to BR, tolerates well. Pt noted to have nonproductive cough. Call light in reach, no concerns at this time.
--- NOTE | 2021-08-27 08:15 | HMH.ACPN2 ---
<Bailey Benjamin - Last Filed: 08/27/21 08:15> Internal Medicine - PN: Subj *Date: 08/27/21 *Time: 08:15 Interval history: Patient states she is feeling well this morning other than a cough that makes her want to vomit. She is able to cough up a small amount of sputum. She slept off and on throughout the night. She denies any pain this morning. Exam Vital signs and Labs for Last 24 Hours: Temp Pulse Resp BP Pulse Ox 98.7 F 75 18 143/77 H 95 08/27/21 07:41 08/27/21 07:41 08/27/21 07:41 08/27/21 07:41 08/27/21 07:41 I & O for Last 24 hours: Intake & Output 08/24/21 08/25/21 08/26/21 08/27/21 11:59 11:59 11:59 11:59 Intake Total 1400 / 1400 1160 / 1160 720 / 720 840 / 840 Output Total 1350 / 1350 550 / 550 800 / 800 0 / 0 Balance 50 / 50 610 / 610 -80 / -80 840 / 840 Weight 282 lb 3.067 oz 289 lb 288 lb 12.889 oz 288 lb 12.889 oz Radiology Reports for the Last 24 Hours: CXR - Suspect trace right effusion otherwise no change. - Constitutional no acute distress - *Routine Respiratory Exam Present: CTA bilaterally - *Routine Cardiovascular Exam Present: RRR - *Routine Abdominal Exam Present: soft, normoactive bowel sounds. Absent: tenderness - *Routine Extremities Exam Absent: cyanosis, clubbing, edema - *Routine Skin Exam Present: warm. Absent: rash - *Routine Neurological Exam Present: alert, oriented X3 Assessment and Plan (1) Altered mental status Status: Acute Qualifiers: Altered mental status type: delirium Qualified Code(s): R41.0 - Disorientation, unspecified Category: Medical Code(s): R41.82 - Altered mental status, unspecified (2) Diverticulitis large intestine Status: Acute Qualifiers: Diverticulitis bleeding: without bleeding Diverticulitis complication: without perforation or abscess Qualified Code(s): K57.32 - Diverticulitis of large intestine without perforation or abscess without bleeding Category: Medical Code(s): K57.32 - Diverticulitis of large intestine without perforation or abscess without bleeding (3) Chronic atrial fibrillation Status: Acute Category: Medical Code(s): I48.20 - Chronic atrial fibrillation, unspecified (4) HBP (high blood pressure) Status: Acute Category: Medical Code(s): I10 - Essential (primary) hypertension (5) Hx of seizure disorder Status: Acute Category: Medical Code(s): Z86.69 - Personal history of other diseases of the nervous system and sense organs (6) RIAZ (obstructive sleep apnea) Status: Acute Category: Medical Code(s): G47.33 - Obstructive sleep apnea (adult) (pediatric) (7) Elevated troponin Status: Acute Category: Medical Code(s): R77.8 - Other specified abnormalities of plasma proteins (8) URI (upper respiratory infection) Status: Acute Category: Medical Code(s): J06.9 - Acute upper respiratory infection, unspecified (9) Cough Status: Acute Category: Medical Code(s): R05.9 - Cough, unspecified - Assessment and plan all Dx Assessment and Plan for all problems:: We will start on Tessalon for cough. Cardiology to place a pacemaker this morning. <Tanner Rodríguez - Last Filed: 08/27/21 23:18> Internal Medicine - PN: Subj *Date: 08/27/21 *Time: 23:17 Exam Vital signs and Labs for Last 24 Hours: Temp Pulse Resp BP Pulse Ox 98.7 F 77 23 143/73 H 96 08/27/21 20:49 08/27/21 22:36 08/27/21 22:36 08/27/21 22:36 08/27/21 22:36 Laboratory Results - last 24 hr 08/27/21 09:46: WBC 11.4 H, RBC 3.09 L, Hgb 10.1 L, Hct 31.9 L, MCV 103.5 H, MCH 32.7 H, MCHC 31.6 L, RDW 14.8, Plt Count 418 D, MPV 9.4, Neut % (Auto) 81.8 H, Lymph % (Auto) 11.2, [place] % (Auto) 3.1, Eos % (Auto) 3.5, Baso % (Auto) 0.4, Neut # (Auto) 9.3 H, Lymph # (Auto) 1.3, [place] # (Auto) 0.4, Eos # (Auto) 0.4, Baso # (Auto) 0.0 08/27/21 09:46: Sodium 137, Potassium 4.2, Chloride 105, Carbon Dioxide 30, Anion Gap 6.2, BUN 40 H, Creatinine 2.00 H, Es
--- NOTE | 2021-08-27 08:32 | HMH.PNCARD ---
Subjective Date: 08/27/21 Time: 08:32 Principal diagnosis: AMS, Cardiomyopathy Interval history: 75 yo WF in bed in NAD. Slight productive cough noted. Questions answered regarding procedure. Exam Vital signs and Labs for Last 24 Hours: Temp Pulse Resp BP Pulse Ox 98.7 F 75 18 143/77 H 95 08/27/21 07:41 08/27/21 07:41 08/27/21 07:41 08/27/21 07:41 08/27/21 07:41 I & O for Last 24 hours: Intake & Output 08/24/21 08/25/21 08/26/21 08/27/21 11:59 11:59 11:59 11:59 Intake Total 1400 / 1400 1160 / 1160 720 / 720 840 / 840 Output Total 1350 / 1350 550 / 550 800 / 800 0 / 0 Balance 50 / 50 610 / 610 -80 / -80 840 / 840 Weight 282 lb 3.067 oz 289 lb 288 lb 12.889 oz 288 lb 12.889 oz - Constitutional no acute distress - *Routine HEENT Exam Head: Present: normocephalic Eye: Present: EOMI, PERRL ENT: Present: mucous membranes moist - *Routine Neck Exam Present: supple. Absent: lymphadenopathy - *Routine Respiratory Exam Present: CTA bilaterally - *Routine Cardiovascular Exam Present: irregular rhythm - *Routine Abdominal Exam Present: soft, normoactive bowel sounds. Absent: tenderness - *Routine Extremities Exam Absent: cyanosis, clubbing, edema - *Routine Skin Exam Present: warm. Absent: rash - *Routine Neurological Exam Present: alert, oriented X3 Progress Note: A&P (1) Altered mental status Status: Acute (2) Diverticulitis large intestine Status: Acute (3) Chronic atrial fibrillation Status: Acute (4) HBP (high blood pressure) Status: Acute (5) Hx of seizure disorder Status: Acute (6) RIAZ (obstructive sleep apnea) Status: Acute (7) Elevated troponin Status: Acute (8) URI (upper respiratory infection) Status: Acute (9) Cough Status: Acute (10) Cardiomyopathy Status: Acute (11) Systolic and diastolic CHF, acute Status: Acute Assessment and Plan for All Diagnoses:: 1. Elevated troponins but with normal coronary arteries by [facility] this admission. Patient with newly diagnosed cardiomyopathy with concern for pacer induced cardiomyopathy versus Takotsubo cardiomyopathy. No significant event to account for Takotsubo cardiomyopathy noted. Echocardiogram from November of this year obtained from outside facility showing normal ejection fraction but with report indicating restrictive filling of the LV which is seen in systolic CHF. So either the patient has developed a pacemaker induced cardiomyopathy or had systolic dysfunction that was not diagnosed due to poor echo technique. Either way, the treatment is the same and would benefit from an upgrade to a biventricular AICD which is tentatively planned for tomorrow. 2. Paroxysmal atrial fibrillation, Eliquis held for pacemaker/AICD upgrade. Diltiazem discontinued in the setting of severe cardiomyopathy. Consider cardioversion at time of AICD upgrade. 3. Altered mental status, improved 4. Hypertension, controlled 5. History of Seizure disorder, defer to PCP. On lamotrigine. 6. Pacemaker in situ for history of bradycardia. Interrogated this admission and noted to be functioning appropriately. 7. Renal insufficiency, exacerbated this admission with Cr now 2.2 with Cr Cl of 18 (Cr 1.4 with Cr Cl of 29 on admission). Stable after cardiac catheterization with creatinine of 2.3 today. Anticipate pt could be considered for discharge in AM if no complications from today's procedure. Will resume eliquis in AM. Will give a dose of lasix after the procedure today.
--- NOTE | 2021-08-27 09:59 | HMH.ANESCL ---
[facility] Anesthesia Checklist - Patient Identification Patient Identification: Arm Band, Verbal (Name & ) - Structural Data Admitted From: Home Planned Operative Procedure/s: Pacemaker Placement Consent for Planned Operative Procedure(s) Verified: Yes Verified Documents: Surgical Consent - NPO Status Verified Time NPO: 00:00 - Chart Verification Results Verified: CBC - Cardiovascular Assessment Heart Sounds: S1 & S2 - Airway Assessment C-Spine Mobility Assessed: Yes TMJ Mobility Assessed: Yes - Neurological Assessment Level of Consciousness: Awake, Alert, Appropriate - Anesthesia Plan Anesthesia Risk discussed: Yes ASA Class: III Anesthesia Type: MAC [facility] History I have reviewed the patient's past medical history: Yes Medical History: Reports:: Atrial Fibrillation (chronic; s/p 2 previous cardioversions), Hypertension, Internal Pacemaker, Renal Insufficiency, Seizures Denies:: Diabetes Mellitus Type 1, Diabetes Mellitus Type 2 *Have you ever received a pneumonia vaccine?: No *Have you received a flu vaccine this season?: No Other Medical History: Reports: Other (RIAZ, Diverticulosis with hx of ruptured diverticulum) Anesthesia experience/problems:: none Laterality Cases: Bilateral: Carpal Tunnel Release, Cataract, Tonsillectomy Other Surgeries: Yes: Colonoscopy, Pacemaker, Tubal Ligation, Other (Cardioversion x 2) - *Social History Smoking Status: Never smoker Alcohol Intake: never Substance Use Type: denies use *Occupational Status:: retired Housing: detention *Travel in the last 8 weeks: None Family Hx:: Coronary Artery Disease, Diabetes
[2021-08-27 10:01] LABS: Basophils % 0.4 % (0.1-2.0); Eosinophils # 0.4 K/mm3 (0.0-0.4); Eosinophils % 3.5 % (0.1-12.0); Hematocrit 31.9 % (37.0-47.0); Hemoglobin 10.1 g/dL (12.2-16.2); Lymphocytes # 1.3 K/mm3 (0.7-4.5); Lymphocytes % 11.2 % (10-50); Mean Corpuscular HGB Conc 31.6 g/dL (31.8-35.4); Mean Corpuscular Hemoglobin 32.7 pg (27.0-31.2); Mean Corpuscular Volume 103.5 fl (81-99); Mean Platelet Volume 9.4 fl (7.4-10.4); Monocytes # 0.4 K/mm3 (0.1-1.0); Monocytes % 3.1 % (1.7-9.3); Neutrophils # 9.3 K/mm3 (1.8-7.8); Neutrophils % 81.8 % (37.0-80.0); Platelet Count 418 K/mm3 (142-424); Red Blood Count 3.09 M/mm3 (4.20-5.40); Red Cell Distribution Width 14.8 % (11.5-17.5); White Blood Count 11.4 K/mm3 (4.8-10.8)
[2021-08-27 10:07] LABS: Alanine Aminotransferase 29 U/L (12-78); Albumin Level 3.4 g/dl (3.5-5.0); Albumin/Globulin Ratio 1.1 (1.1-1.8); Alkaline Phosphatase 117 U/L (38-126); Anion Gap 6.2 mEq/L (5-15); Aspartate Amino Transferase 36 U/L (14-36); Bilirubin,Total 0.2 mg/dl (0.2-1.3); Blood Urea Nitrogen 40 mg/dl (7-17); Carbon Dioxide 30 mmol/L (22.0-30.0); Chloride 105 mmol/L (98-107); Creatinine Clearance Estimated 20 mL/min (50-200); Estimated Glomerular Filt Rate 24 ml/min (>60); GFR (African American) 29 ML/MIN (>60); Glucose 105 mg/dl (74-100); Potassium 4.2 mmoL/L (3.5-5.1); Sodium 137 mmol/L (136-145); Total Protein,Serum 6.4 g/dl (6.3-8.2)
--- NOTE | 2021-08-27 10:57 | PC.NURSE ---
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 pt had abx due at 1100. unable to admin at this time r/t pt goind to [employer]
--- NOTE | 2021-08-27 15:25 | XR_ITS ---
PROCEDURE: XR CHEST PORTABLE CLINICAL HISTORY: post pacemaker COMPARISON: CR CXR CHEST(2 VIEWS-NOT PORTABLE) from 09/19/2017 CR XR CHEST PORTABLE from 08/22/2021 CR XR CHEST PORTABLE from 08/26/2021 FINDINGS: Cardiomegaly without failure. There is a biventricular pacemaker from left subclavian approach with good distal lead position on the AP view. Right atrial pacemaker lead also noted. The LV pacer wire is looped in the region of the right ventricle. Right IJ MediPort catheter is present with tip in the region of the SVC. There are low lung volumes. There is no evidence of pneumothorax. There is increased density in the left suprahilar region possibly due to prominent vessels as there is moderate patient rotation. Lung consolidation or collapse is also consideration. No acute bony abnormalities. IMPRESSION: Biventricular pacemaker inserted from left subclavian approach as described above. Dictated by: Janak Carrington MD 08/27/2021 15:44 Janak Carrington MD in [facility] 08/27/2021 15:44
--- NOTE | 2021-08-27 18:11 | PC.NURSE ---
Since returning to floor following pacemaker replacement, pt has slept and when awake was noted to be very drowsy. lungs contain rhonchi, bowel sounds are active. pt family notified staff that she needed to use the restroom. upon conversing with the pt, she said she does not feel she can get up to the RR or BSC at this time. pt was placed on a bed mustafa but was noted to drift off to sleep periodically. it was discussed with the family as well as the pt to place a purwick on the pt. all parties are agreeable. as of 1809 pt was more alert and comfortable. will continue to monitor.
--- NOTE | 2021-08-27 22:35 | PC.NURSE ---
Amio gtt decreased to 16.7ml/hr at 2215
[2021-08-28] VITALS (10 sets, daily range): BP systolic 109–143; BP diastolic 45–75; PULSE 70–90; RESP 17–22; TEMP 36.6–36.9; O2SAT 85–98; BMI 47.6
[2021-08-28 06:18] LABS: Basophils % 0.3 % (0.1-2.0); Eosinophils # 0.2 K/mm3 (0.0-0.4); Eosinophils % 1.4 % (0.1-12.0); Hematocrit 30.8 % (37.0-47.0); Hemoglobin 9.5 g/dL (12.2-16.2); Lymphocytes # 0.8 K/mm3 (0.7-4.5); Lymphocytes % 5.9 % (10-50); Mean Corpuscular HGB Conc 30.8 g/dL (31.8-35.4); Mean Corpuscular Hemoglobin 32.7 pg (27.0-31.2); Mean Platelet Volume 9.1 fl (7.4-10.4); Monocytes # 0.4 K/mm3 (0.1-1.0); Monocytes % 2.5 % (1.7-9.3); Neutrophils # 12.5 K/mm3 (1.8-7.8); Neutrophils % 89.9 % (37.0-80.0); Platelet Count 366 K/mm3 (142-424); Red Cell Distribution Width 14.8 % (11.5-17.5); White Blood Count 13.9 K/mm3 (4.8-10.8)
[2021-08-28 06:24] LABS: MANUAL DIFFERENTIAL MANUAL DIFFERENTIAL (MANUAL DIFF)
[2021-08-28 06:39] LABS: Anion Gap 7.3 mEq/L (5-15); Blood Urea Nitrogen 36 mg/dl (7-17); Calcium 8.7 mg/dl (8.4-10.2); Carbon Dioxide 28 mmol/L (22.0-30.0); Chloride 106 mmol/L (98-107); Creatinine Clearance Estimated 23 mL/min (50-200); Estimated Glomerular Filt Rate 27 ml/min (>60); GFR (African American) 33 ML/MIN (>60); Glucose 123 mg/dl (74-100); Potassium 4.3 mmoL/L (3.5-5.1); Sodium 137 mmol/L (136-145)
--- NOTE | 2021-08-28 08:26 | XR_ITS ---
PROCEDURE: XR CHEST PORTABLE CLINICAL HISTORY: increased cough, increased WBC COMPARISON: CR XR CHEST PORTABLE from 08/22/2021 CR XR CHEST PORTABLE from 08/26/2021 CR XR CHEST PORTABLE from 08/27/2021 FINDINGS: Biventricular and right atrial pacemaker present from left subclavian approach unchanged. Right IJ central venous line present with tip in the region the SVC. This appears slightly retracted compared to the previous exam. Tip is 2 cm below the level of the medial aspect of the clavicle and previously was 4 cm below the level of the medial aspect of the clavicle. There is mild cardiomegaly. There is some patchy density in the right perihilar region which could be related to an underlying area of infiltrate. The remaining lungs are clear. There is minimal thickening of the right minor fissure. IMPRESSION: Questionable right perihilar infiltrate. Mild retraction of the right IJ central venous catheter. Dictated by: Janak Carrington MD 08/28/2021 11:16 Janak Carrignton MD in [facility] 08/28/2021 11:16
[2021-08-28 08:36] LABS: Lymphocytes % 9 % (10-50); Monocytes % 2 % (2-9); Neutrophils % 89 % (42-76); Total Cells Counted 100
[2021-08-28 08:37] LABS: Platelet Estimate Normal; RBC Morphology Normal
[2021-08-28 08:38] LABS: Macrocytosis 2+
--- NOTE | 2021-08-28 08:47 | HMH.ACPN2 ---
<Bailey Benjamin - Last Filed: 08/28/21 08:47> Internal Medicine - PN: Subj *Date: 08/28/21 *Time: 08:47 Interval history: The patient's pacemaker was removed and an additional lead was placed to the left ventricle and the device was graded to AICD. She was started on 1 g of IV amiodarone and restarted on her Eliquis. She tolerated the procedure well and cardiology plans for JD/cardioversion on Wednesday if she remains in A. fib. Her only complaint today is a cough. Exam Vital signs and Labs for Last 24 Hours: Temp Pulse Resp BP Pulse Ox 98.4 F 74 21 143/45 H 92 L 08/28/21 04:00 08/28/21 04:00 08/28/21 04:00 08/28/21 04:00 08/28/21 04:00 Laboratory Results - last 24 hr 08/27/21 09:46: WBC 11.4 H, RBC 3.09 L, Hgb 10.1 L, Hct 31.9 L, MCV 103.5 H, MCH 32.7 H, MCHC 31.6 L, RDW 14.8, Plt Count 418 D, MPV 9.4, Neut % (Auto) 81.8 H, Lymph % (Auto) 11.2, [place] % (Auto) 3.1, Eos % (Auto) 3.5, Baso % (Auto) 0.4, Neut # (Auto) 9.3 H, Lymph # (Auto) 1.3, [place] # (Auto) 0.4, Eos # (Auto) 0.4, Baso # (Auto) 0.0 08/27/21 09:46: Sodium 137, Potassium 4.2, Chloride 105, Carbon Dioxide 30, Anion Gap 6.2, BUN 40 H, Creatinine 2.00 H, Estimated Creat Clear 20, Estimated GFR 24 L, Est GFR ( Amer) 29 L, Glucose 105 H, Calcium 9.0, Total Bilirubin 0.2, AST 36, ALT 29, Alkaline Phosphatase 117, Total Protein 6.4, Albumin 3.4 L, Globulin 3.0, Albumin/Globulin Ratio 1.1 08/28/21 06:08: WBC 13.9 H, RBC 2.90 L, Hgb 9.5 L, Hct 30.8 L, MCV 106.0 H, MCH 32.7 H, MCHC 30.8 L, RDW 14.8, Plt Count 366, MPV 9.1, Neut % (Auto) 89.9 H, Lymph % (Auto) 5.9 L, [place] % (Auto) 2.5, Eos % (Auto) 1.4, Baso % (Auto) 0.3, Neut # (Auto) 12.5 H, Lymph # (Auto) 0.8, [place] # (Auto) 0.4, Eos # (Auto) 0.2, Baso # (Auto) 0.0, Total Counted 100, Neutrophils % (Manual) 89 H, Lymphocytes % (Manual) 9 L, Monocytes % (Manual) 2, Platelet Estimate Normal, RBC Morphology Normal, Macrocytosis 2+ 08/28/21 06:08: Sodium 137, Potassium 4.3, Chloride 106, Carbon Dioxide 28, Anion Gap 7.3, BUN 36 H, Creatinine 1.80 H, Estimated Creat Clear 23, Estimated GFR 27 L, Est GFR ( Amer) 33 L, Glucose 123 H, Calcium 8.7 I & O for Last 24 hours: Intake & Output 08/25/21 08/26/21 08/27/21 08/28/21 11:59 11:59 11:59 11:59 Intake Total 1160 / 1160 720 / 720 840 / 840 120 / 120 Output Total 550 / 550 800 / 800 0 / 0 250 / 250 Balance 610 / 610 -80 / -80 840 / 840 -130 / -130 Weight 289 lb 288 lb 12.889 oz 288 lb 12.889 oz 286 lb Microbiology Reports for the Last 24 Hours: Microbiology 08/27/21 19:00 Sputum - Expectorated Sputum Gram Stain - Final 08/27/21 19:00 Sputum - Expectorated Sputum Sputum Culture - Preliminary 08/22/21 21:18 Blood Blood Culture - Final NO GROWTH AFTER 5 DAYS 08/22/21 21:18 Blood Blood Culture - Final NO GROWTH AFTER 5 DAYS - Constitutional no acute distress - *Routine Respiratory Exam Present: decreased breath sounds, wheezes - *Routine Cardiovascular Exam Present: irregular rhythm - *Routine Abdominal Exam Present: soft, normoactive bowel sounds. Absent: tenderness - *Routine Extremities Exam Absent: cyanosis, clubbing, edema - *Routine Skin Exam Present: pallor. Absent: rash - *Routine Neurological Exam Present: alert, oriented X3 Assessment and Plan (1) Altered mental status Status: Acute Qualifiers: Altered mental status type: delirium Qualified Code(s): R41.0 - Disorientation, unspecified Category: Medical Code(s): R41.82 - Altered mental status, unspecified (2) Diverticulitis large intestine Status: Acute Qualifiers: Diverticulitis bleeding: without bleeding Diverticulitis complication: without perforation or abscess Qualified Code(s): K57.32 - Diverticulitis of large intestine without perforation or abscess without bleeding Category: Medical Code(s): K57.32 - Diverticulitis of large intestine without perforation or absc
--- NOTE | 2021-08-28 08:57 | PC.NURSE ---
small Purulent drainage and erythema notedat PICC site. Dressing had not been dated, RN to aseptically clean site with CHG andchange dressing. Provider MD Anne notified. Patient consented to photo to track site progression. No further orders at this time
--- NOTE | 2021-08-28 09:39 | HMH.PNCARD ---
Subjective Date: 08/28/21 Time: 09:39 Principal diagnosis: AMS, Cardiomyopathy Interval history: 75-year-old white female sitting in bedside chair in no acute distress. Appears a little bit tired and states she did not sleep well last evening due to typically sleeping on her left side but with the upgraded device on the left side she found it difficult to sleep on that side. Slight cough has increased with chest x-ray pending. Telemetry appears to show continued atrial fibrillation with intermittent ventricular pacing. Amiodarone IV loading in progress. Exam Vital signs and Labs for Last 24 Hours: Temp Pulse Resp BP Pulse Ox 98.4 F 74 21 143/45 H 92 L 08/28/21 04:00 08/28/21 04:00 08/28/21 04:00 08/28/21 04:00 08/28/21 04:00 Laboratory Results - last 24 hr 08/27/21 09:46: WBC 11.4 H, RBC 3.09 L, Hgb 10.1 L, Hct 31.9 L, MCV 103.5 H, MCH 32.7 H, MCHC 31.6 L, RDW 14.8, Plt Count 418 D, MPV 9.4, Neut % (Auto) 81.8 H, Lymph % (Auto) 11.2, [place] % (Auto) 3.1, Eos % (Auto) 3.5, Baso % (Auto) 0.4, Neut # (Auto) 9.3 H, Lymph # (Auto) 1.3, [place] # (Auto) 0.4, Eos # (Auto) 0.4, Baso # (Auto) 0.0 08/27/21 09:46: Sodium 137, Potassium 4.2, Chloride 105, Carbon Dioxide 30, Anion Gap 6.2, BUN 40 H, Creatinine 2.00 H, Estimated Creat Clear 20, Estimated GFR 24 L, Est GFR ( Amer) 29 L, Glucose 105 H, Calcium 9.0, Total Bilirubin 0.2, AST 36, ALT 29, Alkaline Phosphatase 117, Total Protein 6.4, Albumin 3.4 L, Globulin 3.0, Albumin/Globulin Ratio 1.1 08/28/21 06:08: WBC 13.9 H, RBC 2.90 L, Hgb 9.5 L, Hct 30.8 L, MCV 106.0 H, MCH 32.7 H, MCHC 30.8 L, RDW 14.8, Plt Count 366, MPV 9.1, Neut % (Auto) 89.9 H, Lymph % (Auto) 5.9 L, [place] % (Auto) 2.5, Eos % (Auto) 1.4, Baso % (Auto) 0.3, Neut # (Auto) 12.5 H, Lymph # (Auto) 0.8, [place] # (Auto) 0.4, Eos # (Auto) 0.2, Baso # (Auto) 0.0, Total Counted 100, Neutrophils % (Manual) 89 H, Lymphocytes % (Manual) 9 L, Monocytes % (Manual) 2, Platelet Estimate Normal, RBC Morphology Normal, Macrocytosis 2+ 08/28/21 06:08: Sodium 137, Potassium 4.3, Chloride 106, Carbon Dioxide 28, Anion Gap 7.3, BUN 36 H, Creatinine 1.80 H, Estimated Creat Clear 23, Estimated GFR 27 L, Est GFR ( Amer) 33 L, Glucose 123 H, Calcium 8.7 I & O for Last 24 hours: Intake & Output 08/25/21 08/26/21 08/27/21 08/28/21 11:59 11:59 11:59 11:59 Intake Total 1160 / 1160 720 / 720 840 / 840 120 / 120 Output Total 550 / 550 800 / 800 0 / 0 250 / 250 Balance 610 / 610 -80 / -80 840 / 840 -130 / -130 Weight 289 lb 288 lb 12.889 oz 288 lb 12.889 oz 286 lb Microbiology Reports for the Last 24 Hours: Microbiology 08/27/21 19:00 Sputum - Expectorated Sputum Gram Stain - Final 08/27/21 19:00 Sputum - Expectorated Sputum Sputum Culture - Preliminary 08/22/21 21:18 Blood Blood Culture - Final NO GROWTH AFTER 5 DAYS 08/22/21 21:18 Blood Blood Culture - Final NO GROWTH AFTER 5 DAYS - Constitutional no acute distress - *Routine HEENT Exam Head: Present: normocephalic Eye: Present: EOMI, PERRL ENT: Present: mucous membranes moist - *Routine Neck Exam Present: supple. Absent: lymphadenopathy - *Routine Respiratory Exam Present: decreased breath sounds, wheezes, diminished air movement - *Routine Cardiovascular Exam Present: RRR - *Routine Abdominal Exam Present: soft, normoactive bowel sounds. Absent: tenderness - *Routine Extremities Exam Present: edema. Absent: cyanosis, clubbing - *Routine Skin Exam Present: warm. Absent: rash - *Routine Neurological Exam Present: alert, oriented X3 Progress Note: A&P (1) Altered mental status Status: Acute (2) Diverticulitis large intestine Status: Acute (3) Chronic atrial fibrillation Status: Acute (4) HBP (high blood pressure) Status: Acute (5) Hx of seizure disorder Status: Acute (6) RIAZ (obstructive sleep apnea) Status: Acute (7) Elevated troponin Statu
--- NOTE | 2021-08-28 09:41 | PC.NURSE ---
PICC site cleaned aseptically with HENRY wand, dressing changed and dated with central line dressing. Hubs cleansed and changed. Site dated and initialed
--- NOTE | 2021-08-28 10:51 | HMH.ACPN ---
Internal Medicine - PN: Subj *Date: 08/28/21 *Time: 10:51 Exam Vital signs and Labs for Last 24 Hours: Temp Pulse Resp BP Pulse Ox 98.4 F 74 21 143/45 H 92 L 08/28/21 04:00 08/28/21 04:00 08/28/21 04:00 08/28/21 04:00 08/28/21 04:00 Laboratory Results - last 24 hr 08/28/21 06:08: WBC 13.9 H, RBC 2.90 L, Hgb 9.5 L, Hct 30.8 L, MCV 106.0 H, MCH 32.7 H, MCHC 30.8 L, RDW 14.8, Plt Count 366, MPV 9.1, Neut % (Auto) 89.9 H, Lymph % (Auto) 5.9 L, [place] % (Auto) 2.5, Eos % (Auto) 1.4, Baso % (Auto) 0.3, Neut # (Auto) 12.5 H, Lymph # (Auto) 0.8, [place] # (Auto) 0.4, Eos # (Auto) 0.2, Baso # (Auto) 0.0, Total Counted 100, Neutrophils % (Manual) 89 H, Lymphocytes % (Manual) 9 L, Monocytes % (Manual) 2, Platelet Estimate Normal, RBC Morphology Normal, Macrocytosis 2+ 08/28/21 06:08: Sodium 137, Potassium 4.3, Chloride 106, Carbon Dioxide 28, Anion Gap 7.3, BUN 36 H, Creatinine 1.80 H, Estimated Creat Clear 23, Estimated GFR 27 L, Est GFR ( Amer) 33 L, Glucose 123 H, Calcium 8.7 I & O for Last 24 hours: Intake & Output 08/25/21 08/26/21 08/27/21 08/28/21 23:59 23:59 23:59 23:59 Intake Total 600 / 600 1080 / 1080 240 / 240 Output Total 500 / 850 350 / 350 250 / 250 Balance 100 / -250 730 / 730 240 / -10 -250 / -250 Weight 131 kg 131 kg 129.727 kg Microbiology Reports for the Last 24 Hours: Microbiology 08/27/21 19:00 Sputum - Expectorated Sputum Gram Stain - Final 08/27/21 19:00 Sputum - Expectorated Sputum Sputum Culture - Preliminary 08/22/21 21:18 Blood Blood Culture - Final NO GROWTH AFTER 5 DAYS 08/22/21 21:18 Blood Blood Culture - Final NO GROWTH AFTER 5 DAYS Assessment and Plan (1) Altered mental status Status: Acute Qualifiers: Altered mental status type: delirium Qualified Code(s): R41.0 - Disorientation, unspecified Category: Medical Code(s): R41.82 - Altered mental status, unspecified (2) Diverticulitis large intestine Status: Acute Qualifiers: Diverticulitis bleeding: without bleeding Diverticulitis complication: without perforation or abscess Qualified Code(s): K57.32 - Diverticulitis of large intestine without perforation or abscess without bleeding Category: Medical Code(s): K57.32 - Diverticulitis of large intestine without perforation or abscess without bleeding (3) Chronic atrial fibrillation Status: Acute Category: Medical Code(s): I48.20 - Chronic atrial fibrillation, unspecified (4) HBP (high blood pressure) Status: Acute Category: Medical Code(s): I10 - Essential (primary) hypertension (5) Hx of seizure disorder Status: Acute Category: Medical Code(s): Z86.69 - Personal history of other diseases of the nervous system and sense organs (6) RIAZ (obstructive sleep apnea) Status: Acute Category: Medical Code(s): G47.33 - Obstructive sleep apnea (adult) (pediatric) (7) Elevated troponin Status: Acute Category: Medical Code(s): R77.8 - Other specified abnormalities of plasma proteins (8) URI (upper respiratory infection) Status: Acute Category: Medical Code(s): J06.9 - Acute upper respiratory infection, unspecified (9) Cough Status: Acute Category: Medical Code(s): R05.9 - Cough, unspecified (10) Cardiomyopathy Status: Acute Category: Medical Code(s): I42.9 - Cardiomyopathy, unspecified (11) Systolic and diastolic CHF, acute Status: Acute Category: Medical Code(s): I50.41 - Acute combined systolic (congestive) and diastolic (congestive) heart failure The patient's infection will respond to the chosen ABx?: Yes Is the patient receiving the right drug, dose, and route?: Yes Could a more targeted ABx be ordered?: No (SPUTUM PENDING)
[2021-08-28 14:46] LABS: Anion Gap 8.5 mEq/L (5-15); Blood Urea Nitrogen 38 mg/dl (7-17); Calcium 8.7 mg/dl (8.4-10.2); Carbon Dioxide 30 mmol/L (22.0-30.0); Chloride 104 mmol/L (98-107); Creatinine Clearance Estimated 21 mL/min (50-200); Estimated Glomerular Filt Rate 26 ml/min (>60); GFR (African American) 31 ML/MIN (>60); Glucose 117 mg/dl (74-100); Potassium 4.5 mmoL/L (3.5-5.1); Sodium 138 mmol/L (136-145)
--- NOTE | 2021-08-28 18:07 | PC.WOUNDNOTE ---
PURULENT DRAINAGE NOTED AT SITE
[2021-08-29] VITALS (19 sets, daily range): BP systolic 102–129; BP diastolic 47–72; PULSE 70–95; RESP 18–20; TEMP 36.3–37.2; O2SAT 92–100; BMI 47.0
--- NOTE | 2021-08-29 07:39 | ECG_ITS ---
APPROVED REPORT Exam: Resting ECG HR:73 bpm ECG Measurements Heart Rate 73 AXES QRSd 180 QRS 143 QT 474 T -15 QTc 522 Conclusion Electronic ventricular pacemaker Electronically signed by : Shady Palacios MD 08/30/2021 08:36:40
--- NOTE | 2021-08-29 08:02 | HMH.PNCARD ---
Subjective Date: 08/29/21 Time: 08:02 Principal diagnosis: AMS, Cardiomyopathy Interval history: 75-year-old white female in bed in no acute distress. No complaints overnight. Telemetry reviewed and appears to the patient may have converted to sinus rhythm in the last 24 hours. I have spoken with the pacemaker event sales representative this morning and he will come and interrogate the device prior to proceeding with JD/cardioversion. Exam Vital signs and Labs for Last 24 Hours: Temp Pulse Resp BP Pulse Ox 97.8 F 83 18 102/59 L 92 L 08/29/21 04:00 08/29/21 04:00 08/29/21 04:00 08/29/21 04:00 08/29/21 04:00 Laboratory Results - last 24 hr 08/28/21 06:08: Total Counted 100, Neutrophils % (Manual) 89 H, Lymphocytes % (Manual) 9 L, Monocytes % (Manual) 2, Platelet Estimate Normal, RBC Morphology Normal, Macrocytosis 2+ 08/28/21 14:17: Sodium 138, Potassium 4.5, Chloride 104, Carbon Dioxide 30, Anion Gap 8.5, BUN 38 H, Creatinine 1.90 H, Estimated Creat Clear 21, Estimated GFR 26 L, Est GFR ( Amer) 31 L, Glucose 117 H, Calcium 8.7 I & O for Last 24 hours: Intake & Output 08/26/21 08/27/21 08/28/21 08/29/21 11:59 11:59 11:59 11:59 Intake Total 720 / 720 840 / 840 600 / 600 360 / 360 Output Total 800 / 800 0 / 0 250 / 250 Balance -80 / -80 840 / 840 350 / 350 360 / 360 Weight 288 lb 12.889 oz 288 lb 12.889 oz 286 lb 282 lb 5 oz Microbiology Reports for the Last 24 Hours: Microbiology 08/27/21 19:00 Sputum - Expectorated Sputum Gram Stain - Final 08/27/21 19:00 Sputum - Expectorated Sputum Sputum Culture - Final Normal Respiratory Marie - Constitutional no acute distress - *Routine HEENT Exam Head: Present: normocephalic Eye: Present: EOMI, PERRL ENT: Present: mucous membranes moist - *Routine Neck Exam Present: supple. Absent: lymphadenopathy - *Routine Respiratory Exam Present: wheezes - *Routine Cardiovascular Exam Present: RRR Comments: Ventricular pacing with capture noted. - *Routine Abdominal Exam Present: soft, normoactive bowel sounds. Absent: tenderness - *Routine Extremities Exam Absent: cyanosis, clubbing, edema - *Routine Skin Exam Present: warm. Absent: rash - *Routine Neurological Exam Present: alert, oriented X3 Progress Note: A&P (1) Altered mental status Status: Acute (2) Diverticulitis large intestine Status: Acute (3) Chronic atrial fibrillation Status: Acute (4) HBP (high blood pressure) Status: Acute (5) Hx of seizure disorder Status: Acute (6) RIAZ (obstructive sleep apnea) Status: Acute (7) Elevated troponin Status: Acute (8) URI (upper respiratory infection) Status: Acute (9) Cough Status: Acute (10) Cardiomyopathy Status: Acute (11) Systolic and diastolic CHF, acute Status: Acute Assessment and Plan for All Diagnoses:: 1. Altered mental status, has resolved 2. Acute on chronic systolic congestive heart failure with reduced ejection fraction (possibly pacemaker induced). Status post upgrade of pacemaker to biventricular AICD. Continue metoprolol but will increase to 25 mg 3 times daily along with lisinopril 20 mg daily to try and enforce more ventricular pacing. We switch IV Lasix to p.o. 3. Atrial fibrillation, now on oral amiodarone. Controlled ventricular response. Continue Eliquis therapy. We will proceed with defibrillator interrogation prior to proceeding with JD/cardioversion. 4. Chronic kidney disease, stage IV 5. Cough, partially related to congestive heart failure. Lasix has been started.
--- NOTE | 2021-08-29 08:19 | HMH.ACPN2 ---
<Gloria Ewing - Last Filed: 08/29/21 08:19> Internal Medicine - PN: Subj *Date: 08/29/21 *Time: 08:19 Interval history: She is resting quietly in bed and complains only of being cold which prevented her from resting as well overnight as she normally does. She is NPO for tentative JD/cardioversion per cardiology. She was up in the chair for several hours yesterday and believes she is feeling better. Her bowels have moved and she is voiding normally. Exam Vital signs and Labs for Last 24 Hours: Temp Pulse Resp BP Pulse Ox 97.8 F 83 18 102/59 L 92 L 08/29/21 04:00 08/29/21 04:00 08/29/21 04:00 08/29/21 04:00 08/29/21 04:00 Laboratory Results - last 24 hr 08/28/21 06:08: Total Counted 100, Neutrophils % (Manual) 89 H, Lymphocytes % (Manual) 9 L, Monocytes % (Manual) 2, Platelet Estimate Normal, RBC Morphology Normal, Macrocytosis 2+ 08/28/21 14:17: Sodium 138, Potassium 4.5, Chloride 104, Carbon Dioxide 30, Anion Gap 8.5, BUN 38 H, Creatinine 1.90 H, Estimated Creat Clear 21, Estimated GFR 26 L, Est GFR ( Amer) 31 L, Glucose 117 H, Calcium 8.7 I & O for Last 24 hours: Intake & Output 08/26/21 08/27/21 08/28/21 08/29/21 11:59 11:59 11:59 11:59 Intake Total 720 / 720 840 / 840 600 / 600 360 / 360 Output Total 800 / 800 0 / 0 250 / 250 Balance -80 / -80 840 / 840 350 / 350 360 / 360 Weight 288 lb 12.889 oz 288 lb 12.889 oz 286 lb 282 lb 5 oz Microbiology Reports for the Last 24 Hours: Microbiology 08/27/21 19:00 Sputum - Expectorated Sputum Gram Stain - Final 08/27/21 19:00 Sputum - Expectorated Sputum Sputum Culture - Final Normal Respiratory Marie - Constitutional no acute distress - *Routine HEENT Exam Head: Present: normocephalic ENT: Present: mucous membranes moist - Routine Chest/Breast/Axilla Exam Comments: right subclavian dressing C/D/I, left subclavian dressing C/D/I - *Routine Respiratory Exam Absent: respiratory distress Comments: good air movement with scattered rhonchi and wheezes bilaterally - *Routine Cardiovascular Exam Present: RRR - *Routine Abdominal Exam Present: soft, normoactive bowel sounds, obese. Absent: tenderness, distended - *Routine Extremities Exam Present: pulses intact, extremity cold to touch. Absent: edema, calf tenderness - *Routine Neurological Exam Present: alert, oriented X3, moving all extremities Assessment and Plan (1) Altered mental status Status: Acute Qualifiers: Altered mental status type: delirium Qualified Code(s): R41.0 - Disorientation, unspecified Category: Medical Code(s): R41.82 - Altered mental status, unspecified (2) Diverticulitis large intestine Status: Acute Qualifiers: Diverticulitis bleeding: without bleeding Diverticulitis complication: without perforation or abscess Qualified Code(s): K57.32 - Diverticulitis of large intestine without perforation or abscess without bleeding Category: Medical Code(s): K57.32 - Diverticulitis of large intestine without perforation or abscess without bleeding (3) Chronic atrial fibrillation Status: Acute Category: Medical Code(s): I48.20 - Chronic atrial fibrillation, unspecified (4) HBP (high blood pressure) Status: Acute Category: Medical Code(s): I10 - Essential (primary) hypertension (5) Hx of seizure disorder Status: Acute Category: Medical Code(s): Z86.69 - Personal history of other diseases of the nervous system and sense organs (6) RIAZ (obstructive sleep apnea) Status: Acute Category: Medical Code(s): G47.33 - Obstructive sleep apnea (adult) (pediatric) (7) Elevated troponin Status: Acute Category: Medical Code(s): R77.8 - Other specified abnormalities of plasma proteins (8) URI (upper respiratory infection) Status: Acute Category: Medical Code(s): J06.9 - Acute upper respiratory infection, unspecified (9) Cough Status: Acute Category: Medical
--- NOTE | 2021-08-29 11:16 | CA_ITS ---
APPROVED REPORT EXAM: Comprehensive 2D, Doppler, and color-flow Echocardiogram [employer] Apprentice: Evelin Lunsford RDCS Ht: 5 ft 4 in Wt: 280lbs BSA: 2.26 BP: 118/65 mmHg Indications: JD R/O THROMBUS AF, Limited transesophageal echocardiogram was performed Procedure After obtaining informed consent, patient underwent transesophageal echo in the [employer]. Type of Sedation : Conscious Sedation Sedation was administered by Kole Ambrose C.R.N.A. Transesophageal probe was inserted and advanced into esophagus without difficulty by Dr. Tree Foley. The JD was performed without complications. Synchronized Cardioversion attempted: Successful Synchronized Cardioversion acheived with 41 intracardiac Joules after 1 attempt(s). Rhythm following Synchronized Cardioversion: Permanent Paced Rhythm,AV sequential Throughout the procedure, the blood pressure, pulse oximetry, cardiac rhythm, and rate were monitored. The patient tolerated the procedure without adverse effects. Recovery from conscious sedation was uneventful and vital signs were stable. Left Ventricle Left ventricle is normal size, visually estimated ejection fraction 30% with marked hypokinesis involving the mid to distal septum, anterior and anterior apical wall. Right Ventricle Right ventricle is normal size and contractility Atria Left atrium is mildly enlarged, left atrial appendage free of thrombus. There is good appendage flow by spectral Doppler. Right atrium is normal size. Intra-atrial septum is intact, agitated saline contrast study identifies patent foramen ovale with right to left shunt. Aortic Valve Aortic valve is minimally thickened and fibrosed there is no aortic stenosis or aortic insufficiency. Mitral Valve Mitral valve is grossly normal, there is mild mitral regurgitation. Tricuspid Valve Tricuspid valve grossly normal, there is moderate tricuspid regurgitation. Pulmonic Valve Pulmonic valve is grossly normal. Great Vessels Aortic root is normal size. Ascending, arch and descending thoracic aorta there is no aneurysm or dissection. Pericardium No significant pericardial effusion noted. Conclusion 1. Enlarged left atrium, left atrial appendage free of thrombus. 2. Normal left ventricular size, mild concentric left ventricular hypertrophy, estimated ejection fraction 30% with segmental wall motion abnormality. 3. Agitated saline contrast study identifies patent foramen ovale with right to left shunt. 4. Successful cardioversion to sinus rhythm. Electronically signed by : Guanakito Schwartz MD 08/29/2021 13:31:44
--- NOTE | 2021-08-29 17:25 | PC.NURSE ---
Pt has been pleasant and cooperative this shift. A&O X4. No complaints of pain or SOA. Pt is currently receiving O2 via NC @ 2 LPM with sats. >90%. Lungs CTA. No edema noted. LT chest surgical dressing is C/D/I. Appetite is good and pt eats the majority of all meals. Pt ambulates with stand-by assistance to/from the bathroom and throughout the room. Pt is post-JD/Cardioversion and telemetry reveals a PACED rhythm. Urine is clear and yellow. No BM thus far today. Central line in place to the RT chest is patent and SL. VSS. Call light within reach. Will continue to monitor.
[2021-08-30] VITALS (11 sets, daily range): BP systolic 114–146; BP diastolic 44–84; PULSE 70–97; RESP 16–24; TEMP 36.4–37.2; O2SAT 90–98; BMI 47.2
--- NOTE | 2021-08-30 04:47 | PC.NURSE ---
A&OX4. TOLERATING 2LNC WELL. HAS HAD NO C/O THUS FAR. HAS REMAINED NSR ON TELE. SITE TO UPPER L CHEST CDI. UP INDEPENDENTLY IN ROOM. VSS WILL CONTINUE TO MONITOR.
[2021-08-30 06:36] LABS: Basophils % 0.3 % (0.1-2.0); Eosinophils # 0.3 K/mm3 (0.0-0.4); Eosinophils % 5.7 % (0.1-12.0); Lymphocytes # 0.8 K/mm3 (0.7-4.5); Lymphocytes % 14.1 % (10-50); Mean Corpuscular HGB Conc 30.4 g/dL (31.8-35.4); Mean Corpuscular Hemoglobin 32.5 pg (27.0-31.2); Mean Corpuscular Volume 106.9 fl (81-99); Monocytes # 0.4 K/mm3 (0.1-1.0); Monocytes % 7.6 % (1.7-9.3); Neutrophils # 4.2 K/mm3 (1.8-7.8); Neutrophils % 72.3 % (37.0-80.0); Platelet Count 280 K/mm3 (142-424); Red Blood Count 2.76 M/mm3 (4.20-5.40); Red Cell Distribution Width 14.4 % (11.5-17.5); White Blood Count 5.8 K/mm3 (4.8-10.8)
[2021-08-30 06:37] LABS: Hematocrit 29.5 % (37.0-47.0)
[2021-08-30 06:50] LABS: Chloride 103 mmol/L (98-107)
[2021-08-30 06:51] LABS: Potassium 3.8 mmoL/L (3.5-5.1); Sodium 141 mmol/L (136-145)
[2021-08-30 06:53] LABS: Blood Urea Nitrogen 45 mg/dl (7-17); Creatinine Clearance Estimated 20 mL/min (50-200); Estimated Glomerular Filt Rate 24 ml/min (>60); GFR (African American) 29 ML/MIN (>60)
[2021-08-30 06:54] LABS: Anion Gap 9.8 mEq/L (5-15); Calcium 8.7 mg/dl (8.4-10.2); Carbon Dioxide 32 mmol/L (22.0-30.0); Glucose 98 mg/dl (74-100)
--- NOTE | 2021-08-30 08:54 | HMH.ACPN2 ---
Internal Medicine - PN: Subj *Date: 08/30/21 *Time: 08:54 Interval history: She rested well last night. No new complaints this morning. She feels like her breathing is little better. Still has a congested cough. Cough is mostly nonproductive. She is using her incentive spirometer. Exam Vital signs and Labs for Last 24 Hours: Temp Pulse Resp BP Pulse Ox 98.0 F 88 19 146/84 H 92 L 08/30/21 04:00 08/30/21 05:51 08/30/21 04:00 08/30/21 04:00 08/30/21 05:51 Laboratory Results - last 24 hr 08/30/21 05:00: Sodium 141, Potassium 3.8, Chloride 103, Carbon Dioxide 32 H, Anion Gap 9.8, BUN 45 H, Creatinine 2.00 H, Estimated Creat Clear 20, Estimated GFR 24 L, Est GFR ( Amer) 29 L, Glucose 98, Calcium 8.7 08/30/21 05:00: WBC 5.8 D, RBC 2.76 L, Hgb 9.0 L, Hct 29.5 L, MCV 106.9 H, MCH 32.5 H, MCHC 30.4 L, RDW 14.4, Plt Count 280, MPV 9.0, Neut % (Auto) 72.3, Lymph % (Auto) 14.1, [place] % (Auto) 7.6, Eos % (Auto) 5.7, Baso % (Auto) 0.3, Neut # (Auto) 4.2, Lymph # (Auto) 0.8, [place] # (Auto) 0.4, Eos # (Auto) 0.3, Baso # (Auto) 0.0 I & O for Last 24 hours: Intake & Output 08/27/21 08/28/21 08/29/21 08/30/21 11:59 11:59 11:59 11:59 Intake Total 840 / 840 600 / 600 600 / 600 220 / 220 Output Total 0 / 0 250 / 250 Balance 840 / 840 350 / 350 600 / 600 220 / 220 Weight 288 lb 12.889 oz 286 lb 282 lb 5 oz 283 lb 6.4 oz Microbiology Reports for the Last 24 Hours: Microbiology 08/27/21 19:00 Sputum - Expectorated Sputum Gram Stain - Final 08/27/21 19:00 Sputum - Expectorated Sputum Sputum Culture - Final Normal Respiratory Marie Narrative: She has a paced rhythm on the monitor this morning. Rate is in the 70s. She is alert and oriented. Chest with coarse breath sounds and a few faint wheezes but improved from yesterday. Abdomen is soft and nondistended with no unusual masses or tenderness. Assessment and Plan (1) Altered mental status Status: Acute Qualifiers: Altered mental status type: delirium Qualified Code(s): R41.0 - Disorientation, unspecified Category: Medical Code(s): R41.82 - Altered mental status, unspecified (2) Diverticulitis large intestine Status: Acute Qualifiers: Diverticulitis bleeding: without bleeding Diverticulitis complication: without perforation or abscess Qualified Code(s): K57.32 - Diverticulitis of large intestine without perforation or abscess without bleeding Category: Medical Code(s): K57.32 - Diverticulitis of large intestine without perforation or abscess without bleeding (3) Chronic atrial fibrillation Status: Acute Category: Medical Code(s): I48.20 - Chronic atrial fibrillation, unspecified (4) HBP (high blood pressure) Status: Acute Category: Medical Code(s): I10 - Essential (primary) hypertension (5) Hx of seizure disorder Status: Acute Category: Medical Code(s): Z86.69 - Personal history of other diseases of the nervous system and sense organs (6) RIAZ (obstructive sleep apnea) Status: Acute Category: Medical Code(s): G47.33 - Obstructive sleep apnea (adult) (pediatric) (7) Elevated troponin Status: Acute Category: Medical Code(s): R77.8 - Other specified abnormalities of plasma proteins (8) Cough Status: Acute Category: Medical Code(s): R05.9 - Cough, unspecified (9) Cardiomyopathy Status: Acute Category: Medical Code(s): I42.9 - Cardiomyopathy, unspecified (10) Systolic and diastolic CHF, acute Status: Acute Category: Medical Code(s): I50.41 - Acute combined systolic (congestive) and diastolic (congestive) heart failure (11) Macrocytic anemia Status: Acute Category: Medical Code(s): D53.9 - Nutritional anemia, unspecified (12) Pneumonia Status: Acute Category: Medical Code(s): J18.9 - Pneumonia, unspecified organism - Assessment and plan all Dx Assessment and Plan for all problems:: She completed her plann
[2021-08-30 11:44] LABS: Vitamin B12 947 pg/mL (239-931)
--- NOTE | 2021-08-30 16:40 | PC.NURSE ---
Pt has been pleasant and cooperative this shift. A&O X4. No complaints of pain or SOA. Pt is currently receiving O2 via NC @ 2 LPM with sats. >90%. Lungs CTA. No edema noted. Telemetry reveals a PACED rhythm. LT chest pacemaker insertion site dressing is C/D/I. Appetite is good and pt eats the majority of all meals. Pt ambulates with stand-by assistance to/from the bathroom and throughout the room. Urine is clear and yellow. 2 large, soft, brown stools thus far today. Central line in place to the RT chest is patent and SL. VSS. Call light within reach. Will continue to monitor.
[2021-08-31] VITALS (9 sets, daily range): BP systolic 106–134; BP diastolic 53–71; PULSE 70–100; RESP 18–21; TEMP 36.4–36.9; O2SAT 91–98; BMI 46.6
--- NOTE | 2021-08-31 04:54 | PC.NURSE ---
Pt rested well thus far in shift the night. No c/o of SOA or pain. Pt wore 2L NC t/o the night. Dressing to pacemaker site is C/D/I. No concerns at this time.
[2021-08-31 07:18] LABS: Basophils % 0.5 % (0.1-2.0); Eosinophils # 0.3 K/mm3 (0.0-0.4); Hematocrit 29.1 % (37.0-47.0); Hemoglobin 8.9 g/dL (12.2-16.2); Lymphocytes # 1.2 K/mm3 (0.7-4.5); Lymphocytes % 21.8 % (10-50); Mean Corpuscular HGB Conc 30.8 g/dL (31.8-35.4); Mean Corpuscular Hemoglobin 32.4 pg (27.0-31.2); Mean Corpuscular Volume 105.4 fl (81-99); Mean Platelet Volume 8.8 fl (7.4-10.4); Monocytes # 0.4 K/mm3 (0.1-1.0); Neutrophils # 3.5 K/mm3 (1.8-7.8); Neutrophils % 65.6 % (37.0-80.0); Platelet Count 274 K/mm3 (142-424); Red Blood Count 2.76 M/mm3 (4.20-5.40); Red Cell Distribution Width 14.5 % (11.5-17.5); White Blood Count 5.4 K/mm3 (4.8-10.8)
[2021-08-31 07:22] LABS: Chloride 102 mmol/L (98-107)
[2021-08-31 07:23] LABS: Potassium 3.5 mmoL/L (3.5-5.1); Sodium 141 mmol/L (136-145)
[2021-08-31 07:25] LABS: Blood Urea Nitrogen 47 mg/dl (7-17); Creatinine Clearance Estimated 19 mL/min (50-200); Estimated Glomerular Filt Rate 23 ml/min (>60); GFR (African American) 28 ML/MIN (>60)
[2021-08-31 07:26] LABS: Anion Gap 9.5 mEq/L (5-15); Calcium 8.4 mg/dl (8.4-10.2); Carbon Dioxide 33 mmol/L (22.0-30.0); Glucose 90 mg/dl (74-100)
--- NOTE | 2021-08-31 09:32 | HMH.ACPN2 ---
Internal Medicine - PN: Subj *Date: 08/31/21 *Time: 09:32 Interval history: States she did not sleep as well because of persistent cough which is mostly nonproductive. No increased shortness of breath. She was able to sit up in the chair several hours yesterday and tolerated well. Bowels are moving normally. Exam Vital signs and Labs for Last 24 Hours: Temp Pulse Resp BP Pulse Ox 97.6 F 75 18 117/60 91 L 08/31/21 08:00 08/31/21 08:00 08/31/21 08:00 08/31/21 08:00 08/31/21 08:00 Laboratory Results - last 24 hr 08/30/21 05:00: Vitamin B12 947 H, Folate 12.50 08/31/21 05:34: Sodium 141, Potassium 3.5, Chloride 102, Carbon Dioxide 33 H, Anion Gap 9.5, BUN 47 H, Creatinine 2.10 H, Estimated Creat Clear 19, Estimated GFR 23 L, Est GFR ( Amer) 28 L, Glucose 90, Calcium 8.4 08/31/21 05:34: WBC 5.4, RBC 2.76 L, Hgb 8.9 L, Hct 29.1 L, MCV 105.4 H, MCH 32.4 H, MCHC 30.8 L, RDW 14.5, Plt Count 274, MPV 8.8, Neut % (Auto) 65.6, Lymph % (Auto) 21.8, [place] % (Auto) 7.0, Eos % (Auto) 5.0, Baso % (Auto) 0.5, Neut # (Auto) 3.5, Lymph # (Auto) 1.2, [place] # (Auto) 0.4, Eos # (Auto) 0.3, Baso # (Auto) 0.0 I & O for Last 24 hours: Intake & Output 08/28/21 08/29/21 08/30/21 08/31/21 11:59 11:59 11:59 11:59 Intake Total 600 / 600 600 / 600 220 / 220 1110 / 1110 Output Total 250 / 250 Balance 350 / 350 600 / 600 220 / 220 1110 / 1110 Weight 286 lb 282 lb 5 oz 283 lb 6.4 oz 280 lb 3 oz Narrative: She is alert and oriented. Color is good. Chest with coarse breath sounds and a few rales but no wheezes. Heart is regular. Extremities no edema. Assessment and Plan (1) Altered mental status Status: Acute Qualifiers: Altered mental status type: delirium Qualified Code(s): R41.0 - Disorientation, unspecified Category: Medical Code(s): R41.82 - Altered mental status, unspecified (2) Diverticulitis large intestine Status: Acute Qualifiers: Diverticulitis bleeding: without bleeding Diverticulitis complication: without perforation or abscess Qualified Code(s): K57.32 - Diverticulitis of large intestine without perforation or abscess without bleeding Category: Medical Code(s): K57.32 - Diverticulitis of large intestine without perforation or abscess without bleeding (3) Chronic atrial fibrillation Status: Acute Category: Medical Code(s): I48.20 - Chronic atrial fibrillation, unspecified (4) HBP (high blood pressure) Status: Acute Category: Medical Code(s): I10 - Essential (primary) hypertension (5) Hx of seizure disorder Status: Acute Category: Medical Code(s): Z86.69 - Personal history of other diseases of the nervous system and sense organs (6) RAIZ (obstructive sleep apnea) Status: Acute Category: Medical Code(s): G47.33 - Obstructive sleep apnea (adult) (pediatric) (7) Elevated troponin Status: Acute Category: Medical Code(s): R77.8 - Other specified abnormalities of plasma proteins (8) Cough Status: Acute Category: Medical Code(s): R05.9 - Cough, unspecified (9) Cardiomyopathy Status: Acute Category: Medical Code(s): I42.9 - Cardiomyopathy, unspecified (10) Systolic and diastolic CHF, acute Status: Acute Category: Medical Code(s): I50.41 - Acute combined systolic (congestive) and diastolic (congestive) heart failure (11) Macrocytic anemia Status: Acute Category: Medical Code(s): D53.9 - Nutritional anemia, unspecified (12) Pneumonia Status: Acute Category: Medical Code(s): J18.9 - Pneumonia, unspecified organism (13) CKD (chronic kidney disease) Status: Acute Category: Medical Code(s): N18.9 - Chronic kidney disease, unspecified - Assessment and plan all Dx Assessment and Plan for all problems:: Repeat chest x-ray today. Continue Levaquin. Encourage out of bed activity. Possible discharge tomorrow.
--- NOTE | 2021-08-31 16:35 | PC.NURSE ---
Pt has been pleasant and cooperative this shift. A&O X4. No complaints of pain or SOA. Pt has been on room air for the majority of the day with sats. >90%. Pt applies 2 LPM via NC when sleeping. Lungs CTA. No edema noted. Telemetry reveals a PACED rhythm. LT chest pacemaker insertion site dressing is C/D/I. Appetite is good and pt eats the majority of all meals. Pt ambulates with stand-by assistance to/from the bathroom and throughout the room. Urine is clear and yellow. 1 large, soft, brown stool thus far today. Central line in place to the RT chest is patent and SL. VSS. Call light within reach. Will continue to monitor.
[2021-09-01] VITALS: BP 137/75; PULSE 77; PULSE 80; RESP 16; TEMP 36.7; O2SAT 99
[2021-09-01 04:00] VITALS: BP 135/67; PULSE 100; PULSE 101; RESP 20; TEMP 36.6; O2SAT 95
[2021-09-01 05:02] VITALS: BMI 47.0
[2021-09-01 05:37] VITALS: PULSE 84; PULSE 88; O2SAT 93
[2021-09-01 08:00] VITALS: BP 116/57; PULSE 80; RESP 18; TEMP 36.8; O2SAT 100
--- NOTE | 2021-09-01 08:23 | XR_ITS ---
PROCEDURE: XR CHEST 2V CLINICAL HISTORY: f/u pneumonia COMPARISON: CR XR CHEST PORTABLE from 08/26/2021 CR XR CHEST PORTABLE from 08/27/2021 CR XR CHEST PORTABLE from 08/28/2021 FINDINGS: Biventricular and right atrial pacemaker is present. Right IJ MediPort catheter tip in the region of the SVC. Right perihilar opacity improved. IMPRESSION: No acute findings. Dictated by: Janak Carrington MD 09/01/2021 10:43 Janak Carrington MD in [place] 09/01/2021 10:43
--- NOTE | 2021-09-01 09:16 | HMH.ACPN2 ---
<Carol Moreira - Last Filed: 09/01/21 09:16> Internal Medicine - PN: Subj *Date: 09/01/21 *Time: 09:16 Interval history: Patient states she may be a little bit better today although she is wheezing more. She has been up and had a shower this morning. She is eating without difficulty. She does have a productive cough at present. Bowels are moving and she is voiding QS. She sat on the side of the bed yesterday. She states it was too cold to sit over by the window. Exam Vital signs and Labs for Last 24 Hours: Temp Pulse Resp BP Pulse Ox 97.8 F 84 20 135/67 93 L 09/01/21 04:00 09/01/21 05:37 09/01/21 04:00 09/01/21 04:00 09/01/21 05:37 I & O for Last 24 hours: Intake & Output 08/29/21 08/30/21 08/31/21 09/01/21 11:59 11:59 11:59 11:59 Intake Total 600 / 600 220 / 220 1110 / 1110 480 / 480 Balance 600 / 600 220 / 220 1110 / 1110 480 / 480 Weight 282 lb 5 oz 283 lb 6.4 oz 280 lb 3 oz 282 lb 1.6 oz - Constitutional no acute distress, morbidly obese - *Routine Respiratory Exam Present: wheezes (Inspiratory and expiratory throughout) - *Routine Cardiovascular Exam Present: RRR - *Routine Abdominal Exam Present: soft, normoactive bowel sounds - *Routine Extremities Exam Present: edema (Bilateral lower extremity) - *Routine Neurological Exam Present: alert, oriented X3 Assessment and Plan (1) Altered mental status Status: Acute Qualifiers: Altered mental status type: delirium Qualified Code(s): R41.0 - Disorientation, unspecified Category: Medical Code(s): R41.82 - Altered mental status, unspecified (2) Diverticulitis large intestine Status: Acute Qualifiers: Diverticulitis bleeding: without bleeding Diverticulitis complication: without perforation or abscess Qualified Code(s): K57.32 - Diverticulitis of large intestine without perforation or abscess without bleeding Category: Medical Code(s): K57.32 - Diverticulitis of large intestine without perforation or abscess without bleeding (3) Chronic atrial fibrillation Status: Acute Category: Medical Code(s): I48.20 - Chronic atrial fibrillation, unspecified (4) HBP (high blood pressure) Status: Acute Category: Medical Code(s): I10 - Essential (primary) hypertension (5) Hx of seizure disorder Status: Acute Category: Medical Code(s): Z86.69 - Personal history of other diseases of the nervous system and sense organs (6) RIAZ (obstructive sleep apnea) Status: Acute Category: Medical Code(s): G47.33 - Obstructive sleep apnea (adult) (pediatric) (7) Elevated troponin Status: Acute Category: Medical Code(s): R77.8 - Other specified abnormalities of plasma proteins (8) Cough Status: Acute Category: Medical Code(s): R05.9 - Cough, unspecified (9) Cardiomyopathy Status: Acute Category: Medical Code(s): I42.9 - Cardiomyopathy, unspecified (10) Systolic and diastolic CHF, acute Status: Acute Category: Medical Code(s): I50.41 - Acute combined systolic (congestive) and diastolic (congestive) heart failure (11) Macrocytic anemia Status: Acute Category: Medical Code(s): D53.9 - Nutritional anemia, unspecified (12) Pneumonia Status: Acute Category: Medical Code(s): J18.9 - Pneumonia, unspecified organism (13) CKD (chronic kidney disease) Status: Acute Category: Medical Code(s): N18.9 - Chronic kidney disease, unspecified - Assessment and plan all Dx Assessment and Plan for all problems:: Continue current care. We will recheck chest x-ray today. <Tanner Rodríguez - Last Filed: 09/01/21 22:30> Internal Medicine - PN: Subj *Date: 09/01/21 *Time: 21:57 Exam Vital signs and Labs for Last 24 Hours: Temp Pulse Resp BP Pulse Ox 97.2 F L 75 22 124/56 L 96 09/01/21 12:00 09/01/21 12:51 09/01/21 12:00 09/01/21 12:00 09/01/21 12:51 Laboratory Results - last 24 hr 09/01/21 09:12: SARS-CoV-2 (PCR) Not de
[2021-09-01 09:34] LABS: Coronavirus 19, PCR Not Detected (NotDetected); Influenza A, PCR Not Detected (NotDetected); Influenza B, PCR Not Detected (NotDetected)
[2021-09-01 12:00] VITALS: BP 124/56; PULSE 68; PULSE 80; RESP 22; TEMP 36.2; O2SAT 100
--- NOTE | 2021-09-01 12:45 | HMH.DCSUM ---
General - General Admission date:: 08/23/21 <Tanner Rodríguez - 10/18/21 22:23> 08/23/21 <HarishCarol - 09/01/21 13:37> Discharge date: 09/01/21 <Moreira,Carol - 09/01/21 13:37> HPI HPI: Ms. Jarrett is a 75-year-old white female with a history of chronic atrial fibrillation, hypertension, sleep apnea, seizure disorder, and chronic kidney disease. She was recently admitted to [facility] for IV antibiotics following an acute admission at [facility] for ruptured diverticulum which was treated conservatively. She did not require surgery. One evening, she had a change in her mental status at [facility] and was transferred to the emergency room for further evaluation. In the ER, she was confused and agitated; however her work-up was fairly nonrevealing (please refer to ER record for details). She required 1 dose of Ativan overnight. At the time of my exam the following morning, she was alert and calm. She was able to call me by name. She did not recall the events of previous evening. She was able to give me a general history but had difficulty recalling specific details. She had no complaints of chest pain, shortness of breath, nausea, or abdominal pain. Her troponins elevated overnight. She remained in atrial fib with a rapid response but had not had her morning medication. According to her daughter, she had 2 previous cardioversions which were successful but each time she reverted back into atrial fibrillation. She was scheduled to have another cardioversion on 09/16/[address] Mann. <Freya Moreirahy - 09/01/21 13:37> Hospital Course Hospital Course: On admission cardiology was consulted due to her elevated troponins. She was started on a Cardizem drip as per Dr. Amos in order to control her ventricular rate. She remained in atrial fib at this point. Her mental status gradually became more clear and she was alert and oriented. She did begin with a cough and some nasal stuffiness. With cardiology visit the assessment and plan were as follows: 1. Elevated troponin in a patient with cardiac risk factors, concern for non-ST elevation VA in the setting of altered mental status. Recommend proceeding with left heart catheterization today. Risk, benefits and procedure explained to the patient she agrees to proceed. Further recommendations to follow pending those results. 2. Paroxysmal atrial fibrillation, patient is on Eliquis along with flecainide and diltiazem. Pacemaker interrogated today. Frequent and prolonged episodes in the last week. No ventricular arrhythmias noted. V paced 39.9%, A paced 1.8%, AT/AF burden 99.9% since 08-19-2021. Consider cardioversion at time of cath if still in A. fib. 3. Altered mental status, improved 4. Hypertension, borderline low today. 5. History of Seizure disorder, defer to PCP. On lamotrigine. 6. 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 Renal insufficiency, exacerbated this admission with Cr now 2.2 with Cr Cl of 18 (Cr 1.4 with Cr Cl of 29 on admission). Patient did have a cardiac cath which revealed the following: LHC revealed normal coronaries. Apical ballooning noted on cath with official echo results pending, but concerned for Takotsubo Cardiomyopathy. Will try to obtain most recent echo near time of pacer implant to compare. Maximize medical therapy. Consider upgrading device to Bi-V AICD if this cardiomyopathy is pacer induced. Will stop flecainide and diltiazem due to near 100% A. fib over the last week on pacer download in setting of cardiomyopathy. Will increase metoprolol. Patient was noted to be off of the diltiazem drip and on metoprolol for rate control. Cardiology continued to follow the patient with additional plans as follows: PLAN 1. Standard therapy for systolic heart failure 2. Discontinuation of flecainide. Patient has a history of chronic atrial fibrillation therefore makes no sense to continue flecainide. 3. Additio
[2021-09-01 12:51] VITALS: PULSE 74; PULSE 75; O2SAT 96
--- NOTE | 2021-09-01 17:46 | PC.NURSE ---
[facility] for [facility]
== END 2021-09-01 16:15 | DRG 224 ==
LOC: ER 08-23 01:43 → 2ND 08-24 07:34
PROVIDERS: Internal Medicine; Internal Medicine Cardiovascular Disease; Physician Assistant; Admitting Provider Family Medicine; Emergency Provider Emergency Medicine; PCP Family Medicine; Visit Provider Family Medicine
PROC: 0JH609Z Insertion of Cardiac Resynchronization Defibrillator Pulse Generator into Chest Subcutaneous Tissue and Fascia, Open Approach (ICD-10-PCS; CPT 33249; principal; 2021-08-27 10:00)
DX: I42.9 Cardiomyopathy, unspecified (principal); I50.41 Acute combined systolic (congestive) and diastolic (congestive) heart failure; J18.9 Pneumonia, unspecified organism; I48.20 Chronic atrial fibrillation, unspecified; K57.32 Diverticulitis of large intestine without perforation or abscess without bleeding; N18.4 Chronic kidney disease, stage 4 (severe); R41.82 Altered mental status, unspecified; G40.909 Epilepsy, unspecified, not intractable, without status epilepticus; Z79.899 Other long term (current) drug therapy; Z20.822 Contact with and (suspected) exposure to COVID-19; Z95.0 Presence of cardiac pacemaker; D53.9 Nutritional anemia, unspecified; I13.10 Hypertensive heart and chronic kidney disease without heart failure, with stage 1 through stage 4 chronic kidney disease, or unspecified chronic kidney disease; K80.20 Calculus of gallbladder without cholecystitis without obstruction; G47.33 Obstructive sleep apnea (adult) (pediatric); Z79.02 Long term (current) use of antithrombotics/antiplatelets; E11.22 Type 2 diabetes mellitus with diabetic chronic kidney disease; I48.0 Paroxysmal atrial fibrillation; J06.9 Acute upper respiratory infection, unspecified; R77.8 Other specified abnormalities of plasma proteins; G57.10 Meralgia paresthetica, unspecified lower limb
CPT/HCPCS: 33249; 70450; 71045; 71046; 74177; 80048; 80053; 81001; 82150; 82607; 82746; 82962; 83605; 83690; 84145; 84484; 85007; 85025; 85651; 86140; 87040; 87070; 87205; 92960; 93005; 93306; 93312; 93458; 94640; 94761; 96365; 99152; 99285; C1725; C1769; C1882; C1895; C1900; C9803; J0282; J1644; J1956; J2405; J2543; J2704; J7060; Q9967; U0003; U0005

== ENCOUNTER → 2021-10-15 12:26 | Outpatient (CLI) | payer MEDICARE, OTHER, SELFPAY ==
--- NOTE | 2021-10-15 | CA_ITS ---
APPROVED REPORT EXAM: Comprehensive 2D, Doppler, and color-flow Echocardiogram Medical Laboratory Technicians: Zahraa Dyson CRT Ht: 5 ft 4 in Wt: 273lbs BSA: 2.23 BP: 130/70 mmHg Indications: Cardiomyopathy Generic I42.8 Echo Enhancing Agent Indication: Endocardial border delineation Agent(s) / Amount(s) Used: Definity 2 cc M-Mode Dimensions RVDd 2.45 cm (0.9-2.6) LVDd 4.51 cm (3.5-5.7) LVDs 2.89 cm (3.5-5.7) IVSd 1.44 cm (0.6-1.1) PWd 1.33 cm (0.6-1.1) EF (Teich) 65.70% FS 35.90% EDV (Teich) 92.90 mL ESV (Teich) 31.90 mL Conclusion 1. Limited echocardiogram was performed with Definity contrast. 2. Normal left ventricular size with preserved left ventricular systolic function visually estimated ejection fraction 50% with no regional wall motion abnormality, there is no left ventricular thrombus seen. 3. No significant pericardial effusion noted. Electronically signed by : Guanakito Schwartz MD 10/15/2021 18:42:53
== END ==
PROVIDERS: PCP Family Medicine; Visit Provider Physician Assistant
DX: I50.41 Acute combined systolic (congestive) and diastolic (congestive) heart failure (principal); I48.20 Chronic atrial fibrillation, unspecified
CPT/HCPCS: 93308; Q9957